=== PATIENT | female | born 1965 | race Caucasian/White ===

== ENCOUNTER 2022-03-11 18:34 | Inpatient (IN) ==
[2022-03-11] MEDS ORDERED: IOPAMIDOL 100 ML BOTTLE IV ONE (18:35)
--- NOTE | 2022-03-11 20:05 | Emergency Department Note ---
SOB HPI General Chief Complaint: Shortness of Breath/Dyspnea Stated Complaint: Heart Issue Time Seen by Provider: 03/11/22 19:19 Source: patient Mode of arrival: wheelchair Limitations: no limitations History of Present Illness HPI Narrative: Narrative: 56-year-old female with a history of diabetes, COPD, recent cessation of smoking, obstructive sleep apnea, obesity, recent echocardiogram with an ejection fraction of 34% hypokinesis of the left ventricle, history of hypertension, diverticulitis and GERD. She states she sleeps with 3 L of oxygen at night but she has been using it all day last several days. The last week she feels like its been harder to catch her breath. She says lately she is felt chest pressure. She has been using 5 to 6 L/min and has significant exertional dyspnea. She states she is had increasing swelling of her lower extremities. She has had no fever but has had chills and sweats. She denies any vomiting, abdominal pain, dysuria, urgency or frequency. Related Data Home Medications Medication Instructions Recorded Confirmed CPAP Machine See Rx Instructions .Route .COMPLEX 07/18/18 03/12/22 magnesium oxide 1 tab PO QDAY 12/25/20 03/11/22 psyllium seed (sugar) oral powder 2 tsp PO QDAY 07/29/21 03/11/22 (Metamucil (sugar) oral powder) Previous Rx's Medication Instructions Recorded cholecalciferol (vitamin D3) 25 25 mcg PO QDAY #90 caps 07/13/19 mcg (1,000 unit) capsule CPAP 85lmH2P pressure bled with #1 ea 07/25/19 2LPM O2 ondansetron 4 mg disintegrating 4 mg PO Q6H PRN nausea and 09/27/20 tablet vomiting #12 tabs triamcinolone acetonide 0.1 % 1 applic topical BID #30 grams 02/27/21 topical ointment hydrochlorothiazide 25 mg tablet 25 mg PO QDAY #90 tabs 04/28/21 buspirone 5 mg tablet 5 mg PO BID Anxiety #60 tabs 08/27/21 quetiapine 50 mg tablet (Seroquel) 50 mg PO QHS #30 tabs 08/27/21 albuterol sulfate 90 mcg/actuation 2 puff inhalation Q6H PRN 09/29/21 aerosol inhaler shortness of breath or wheezing #18 grams benazepril 10 mg tablet 10 mg PO DAILY #90 tabs 12/30/21 sitagliptin 50 mg-metformin ER 2 tab PO QPM #180 tabs 12/30/21 1,000 mg tablet,extended release 24h mp (Janumet XR) varenicline 1 mg tablet (Chantix) 1 mg PO BID #56 tabs 01/23/22 amitriptyline 25 mg tablet 25 mg PO QHS Depression #30 tabs 02/12/22 budesonide 160 mcg-glycopyr 9 2 inh inhalation QAM AND QPM #10.7 02/12/22 mcg-formot 4.8 mcg/actuation HFA grams inhaler (Breztri Aerosphere) hydrocodone 5 mg-acetaminophen 325 1 tab PO TID PRN pain #90 tabs 02/20/22 mg tablet Allergies Allergy/AdvReac Type Severity Reaction Status Date / Time azithromycin Allergy Mild Hives Verified 03/12/22 01:03 Cefaclor [From Ceclor] Allergy Unknown Hives Verified 03/12/22 01:03 clindamycin Allergy Hives Verified 03/12/22 01:03 prednisone AdvReac Agitated Verified 03/12/22 01:03 Review of Systems ROS ROS Narrative: Narrative: All systems ED: reviewed and negative except as stated. [facility] Narrative Patient History Narrative: Narrative: Medical/Surgical/Family History All Active Problems (Updated 03/11/22 @ 21:29 by Christopher Woodall PA-C) CHF exacerbation (Acute) Gastroesophageal reflux disease (Chronic) Tobacco use (Chronic) Difficulty clearing secretions (Chronic) Dyspnea on exertion (Acute) Hypersomnia (Acute) Non-compliant patient (Chronic) Abdominal pain (Chronic) Small bowel obstruction (Chronic) Ischemic bowel disease (Chronic) Pharyngitis (Chronic) Cellulitis (Chronic) Sinusitis (Chronic) Asthma (Chronic) Back pain (Chronic) Carpal tunnel syndrome (Chronic) Fracture treatment convalescence or palliative care (Chronic) Depression (Chronic) Fatigue (Chronic) Unspecified hemorrhoids (Chronic) Hyperlipidemia (Chronic) Hypertension (Chronic) Incontinence of urine (Chronic) Obesity (Chronic) Obstructive sleep apnea (Chronic) Proteinuria (Chronic) Plantar fasciitis (Chronic) Incontinence (Chronic) Abdominal hernia (Chronic) Low back pain (Chronic) Other intervertebral disc degeneration, lumbosacral region (Chronic) Shortness of breath (Chronic) Acute bronchitis, unspecified (Chronic) Type 2 diabetes mellitus without complications (Chronic) Chronic obstructive pulmonary disease, unspecified (Chronic) Candidiasis, unspecified (Chronic) Nicotine dependence, cigarettes, uncomplicated (Chronic) 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 mellitus (Chronic) Persistent proteinuria (Chronic) Proteinuria due to type 2 diabetes mellitus (Chronic) Anxiety (Chronic) Morbid obesity (Chronic) Chronic diarrhea (Chronic) Diverticular disease of colon (Chronic) Tubular adenoma of colon (Chronic) Major depressive disorder, recurrent, mild (Chronic) Unspecified abdominal hernia without obstruction or gangrene (Chronic) Cramp and spasm (Chronic) Diverticulitis of intestine, part unspecified, with perforation and abscess without bleeding (Chronic) Paresthesia of skin (Chronic) Hernia (Chronic) Spasm of esophagus (Chronic) Sinusitis (Chronic) Hypercholesterolemia (Chronic) Iron deficiency anemia (Chronic) Malaise and fatigue (Chronic) Recurrent incisional hernia with incarceration (Chronic) Gall bladder disease (Chronic) Hiatal hernia (Chronic) Incarcerated ventral hernia (Chronic) Urinary tract infection (Acute) Elbow pain, right (Acute) Sleep apnea with use of continuous positive airway pressure (CPAP) (Chronic) Dry mouth (Acute) Subacromial impingement (Acute) Left knee pain (Acute) Acute URI (Acute) Medial meniscus tear (Acute) Flank pain (Acute) Diverticulitis (Acute) Tobacco abuse (Acute) Viral syndrome (Acute) Cough (Acute) Low back pain (Acute) Nausea (Acute) Abdominal cramping (Acute) History of diverticulitis (Acute) Constipation (Acute) Diverticulitis (Acute) Depression (Acute) Laceration (Acute) Avulsion of skin (Acute) Acute URI (Acute) COPD (chronic obstructive pulmonary disease) with emphysema (Chronic) Cough (Acute) Vitamin D deficiency (Acute) Medication management (Acute) Pneumonia (Acute) Major depressive disorder, recurrent severe without psychotic features (Acute) Medical History Abdominal cramping Abdominal hernia Abdominal pain Acute bronchitis, unspecified Anxiety Asthma Back pain Candidiasis, unspecified Carpal tunnel syndrome Chronic diarrhea Chronic obstructive pulmonary disease, unspecified Constipation COPD (chronic obstructive pulmonary disease) with emphysema Cough Cramp and spasm Depression Diverticular disease of colon Diverticulitis of intestine, part unspecified, with perforation and abscess wit hout bleeding Fatigue Fracture treatment convalescence or palliative care Gall bladder disease Hernia Hiatal hernia History of diverticulitis Hypercholesterolemia Hyperlipidemia Hypertension Incarcerated ventral hernia Incontinence Incontinence of urine Iron deficiency anemia Ischemic bowel disease Low back pain Low back pain Major depressive disorder, recurrent severe without psychotic features Major depressive disorder, recurrent, mild Malaise and fatigue Medication management Morbid obesity Nausea Nicotine dependence, cigarettes, uncomplicated Obesity Obstructive sleep apnea CPAP at 15 cm of water pressure with 3.5 L of oxygen Other intervertebral disc degeneration, lumbosacral region Paresthesia of skin Pharyngitis Plantar fasciitis Proteinuria Recurrent incisional hernia with incarceration Shortness of breath Sinusitis Small bowel obstruction Spasm of esophagus Tubular adenoma of colon Type 2 diabetes mellitus without complications Unspecified abdominal hernia without obstruction or gangrene Unspecified hemorrhoids Viral syndrome Vitamin D deficiency Surgical History History of carpal tunnel surgery Both hands History of cholecystectomy History of colonoscopy 05/24/18-Dr Lopez and 09/04/13 Parent History of colostomy History of hernia surgery (~2013) incarcerated ventral hernia History of herniorrhaphy (~07/2007) ventral incisional hernia History of repair of hiatal hernia History of surgery plantar fasciitis History of total abdominal hysterectomy and bilateral salpingo-oophorectomy (~01/2007) Family History Father Diabetes mellitus, type II Hypertension, essential Heart disease Heart attack Mother Family history of coronary artery disease Mother has signs of CAD Arthritis Family/Other Cancer Grandparen,ts Maternal & Paternal Brother Hypertension, essential Social History Smoking Status: Current every day smoker Alcohol Intake Frequency: holiday/special occasion only Substance Use: does not use Exam Narrative Narrative: Narrative: Gen: No acute distress patient is on 6 L/min via nasal cannula Eyes: PERRL, no conjunctival injection , and symmetrical lids. Sclerae non i cteric HENMT: Normocephalic Atraumatic head, external nose and ears. Moist MM. Neck: Symmetric, trachea midline, no accessory muscle use CVS: +S1/S2, No murmurs or gallops. Radial pulses 2+ and equal bilat. 2+ pitting edema swelling RESP: Increased respiratory effort . Clear to auscultation bilaterally (CTAB). No noted wheezes rales or ronchi. GI: Nontender/Nondistended (NTND), No focal tenderness MSK: Extremities w/o deformity or ttp. No cyanosis or clubbing. 22+ pitting edema of the lower extremities Skin: Warm, Dry . No rashes or lesions . Cap refill less than 2. Psych: Awake, Alert, & Oriented (AAO) x3. Appropriate mood and affect . General Limitations: no limitations Course Vital Signs Vital signs: Vital Signs Temperature 36.4 C 03/11/22 18:41 Pulse Rate 112 H 03/11/22 18:41 Respiratory Rate 18 03/11/22 18:41 Blood Pressure 142/93 03/11/22 18:41 Pulse Oximetry (%) 95 03/11/22 18:41 Oxygen Delivery Method 03/11/22 18:41 Oxygen Flow Rate (L/min) 5 03/11/22 18:41 Temperature 36.4 C 03/11/22 23:06 Pulse Rate 94 H 03/12/22 00:01 Respiratory Rate 19 03/12/22 00:01 Blood Pressure 128/83 03/12/22 00:01 Pulse Oximetry (%) 97 03/12/22 00:01 Oxygen Delivery Method 03/12/22 00:01 Oxygen Flow Rate (L/min) 0 03/11/22 23:25 [facility] Narrative Medical decision making narrative: Narrative: Patient had a recent echocardiogram at the end of January as hypokinesis left ventricle with ejection fraction of 34%. She has had increasing lower extremity swelling, exertional dyspnea, shortness of breath, increasing oxygen demand. She says she has been diaphoretic and had sweats. She states she is had chest pressure. She was evaluated with an EKG, chest x-ray, CBC, Chem-8, hepatic panel, BNP and d-dimer to rule out PE. EKG: Sinus tachycardia at a rate of 106 bpm with slight QT prolongation at 506. No ST or T wave abnormality to suggest acute ischemia. Chest x-ray: Borderline cardiomegaly, prominent pulmonary interstitium likely pulmonary edema and blunting of bilateral costophrenic sulcus suggestive of small pleural effusions. Consider congestive heart failure and infection. CBC: Normal Chem-8: Unremarkable Troponin: 0.05 normal Hepatic panel: BNP: 5377 High D-Dimer: Elevated at 1.17 Patient is elevated dimer will be evaluated with CT at this time. Patient will also be given 40 mg of Lasix. CTA of the chest: Pending COVID: Given the patient has a known ejection fraction of 34%, increasing lower extremity pitting edema, chest x-ray that shows fluid overload and elevated BNP with shortness of breath this is all consistent with congestive heart failure exacerbation. Her troponins not elevated. She did have an elevated D-dimer and a CT is pending at this time but I do not suspect large pulmonary embolus or any other pathology other than congestive heart failure. I reached out to Dr. Gonzalez the hospitalist who graciously agreed to admit the patient. He will come down and evaluate her. Lab Data Result diagrams: 03/11/22 19:48 Labs: Lab Results 03/11/22 03/11/22 03/11/22 Range/Units 19:47 19:47 19:48 WBC 10.1 (4.5-11.0) K/mcL RBC 4.23 (3.59-5.38) M/mcL Hgb 12.6 (11.2-15.7) g/dL Hct 38.8 (34.1-44.9) % POC Hct (36-48) MCV 91.7 (80.0-100.0) fL MCH 29.8 (26.0-34.0) pg MCHC 32.5 (31.0-36.0) g/dL RDW 14.3 (11.5-14.5) % Plt Count 379 (140-440) K/mcL MPV 9.5 (8.8-12.5) fL Immature Gran % (Auto) 0.3 (0.0-0.5) % Neut % (Auto) 69.9 (38.0-78.0) % Lymph % (Auto) 24.0 (15.5-49.0) % [place] % (Auto) 4.6 (1.0-12.0) % Eos % (Auto) 0.9 (0.0-7.0) % Baso % (Auto) 0.3 (0.0-2.0) % Lymph # (Auto) 2.43 (1.50-4.80) K/mcL [place] # (Auto) 0.47 (0.10-0.90) K/mcL Eos # (Auto) 0.09 (0.00-0.70) K/mcL Baso # (Auto) 0.03 (0.00-0.30) K/mcL Immature Gran # 0.03 (0.00-0.05) K/mcl Absolute Neutrophils 7.06 (1.80-8.00) K/mcL D-Dimer (0.27-0.50) ug/mL POC Sodium (133-145) POC Potassium (3.3-5.1) POC Chloride (96-108) POC Total CO2 (22-30) POC BUN (6-20) POC Creatinine (0.6-1.2) POC Glucose (70-105) Hemoglobin A1c 7.0 H (4.0-6.0) % Hgb Estim Average Glucose 154 mg/dL POC WB Ioniz Calcium (1.16-1.32) Total Bilirubin 0.4 (0.1-1.0) mg/dL Direct Bilirubin < 0.2 (0-0.3) mg/dL AST 31 (<32) U/L ALT 35 (<40) U/L Alkaline Phosphatase 79 (39-117) U/L NT-Pro-B Natriuret Pep 5377.0 H (<125.0) pg/mL Total Protein 6.7 (5.9-8.4) gm/dL Albumin 3.2 (3.2-5.2) gm/dL Globulin 3.5 (2.2-3.7) gm/dL POC Troponin I (0.00-0.08) 03/11/22 03/11/22 03/11/22 Range/Units 19:48 19:53 19:54 WBC (4.5-11.0) K/mcL RBC (3.59-5.38) M/mcL Hgb (11.2-15.7) g/dL Hct (34.1-44.9) % POC Hct 38.0 (36-48) MCV (80.0-100.0) fL MCH (26.0-34.0) pg MCHC (31.0-36.0) g/dL RDW (11.5-14.5) % Plt Count (140-440) K/mcL MPV (8.8-12.5) fL Immature Gran % (Auto) (0.0-0.5) % Neut % (Auto) (38.0-78.0) % Lymph % (Auto) (15.5-49.0) % [place] % (Auto) (1.0-12.0) % Eos % (Auto) (0.0-7.0) % Baso % (Auto) (0.0-2.0) % Lymph # (Auto) (1.50-4.80) K/mcL [place] # (Auto) (0.10-0.90) K/mcL Eos # (Auto) (0.00-0.70) K/mcL Baso # (Auto) (0.00-0.30) K/mcL Immature Gran # (0.00-0.05) K/mcl Absolute Neutrophils (1.80-8.00) K/mcL D-Dimer 1.17 H (0.27-0.50) ug/mL POC Sodium 141 (133-145) POC Potassium 3.6 (3.3-5.1) POC Chloride 105 (96-108) POC Total CO2 26.0 (22-30) POC BUN 10 (6-20) POC Creatinine 1.0 (0.6-1.2) POC Glucose 118 H (70-105) Hemoglobin A1c (4.0-6.0) % Hgb Estim Average Glucose mg/dL POC WB Ioniz Calcium 1.15 L (1.16-1.32) Total Bilirubin (0.1-1.0) mg/dL Direct Bilirubin (0-0.3) mg/dL AST (<32) U/L ALT (<40) U/L Alkaline Phosphatase (39-117) U/L NT-Pro-B Natriuret Pep (<125.0) pg/mL Total Protein (5.9-8.4) gm/dL Albumin (3.2-5.2) gm/dL Globulin (2.2-3.7) gm/dL POC Troponin I 0.05 (0.00-0.08) ED POC Tests ED POC Tests: LUIS - SARS Antigen Negative Discharge Plan Patient/Caregiver Discharge Instructions Pt seen by INDUSTRIAL RENDERER/PA only: Yes Clinical Impression: CHF exacerbation Patient Disposition: Xfer As Inpt ([facility]) Discharge Date/Time: 03/11/22 23:01
[2022-03-11 20:31] LABS: POC Calcium, Ionized 1.15 (1.16-1.32); POC Potassium 3.6 (3.3-5.1)
[2022-03-11 20:40] LABS: Basophils # (Auto) 0.03 K/mcL (0.00-0.30); Basophils % (Auto) 0.3 % (0.0-2.0); Eosinophils # (Auto) 0.09 K/mcL (0.00-0.70); Eosinophils % (Auto) 0.9 % (0.0-7.0); Hematocrit 38.8 % (34.1-44.9); Hemoglobin 12.6 g/dL (11.2-15.7); Lymphocytes # (Auto) 2.43 K/mcL (1.50-4.80); Mean Cell Volume 91.7 fL (80.0-100.0); Mean Corpuscular HGB Conc 32.5 g/dL (31.0-36.0); Mean Platelet Volume 9.5 fL (8.8-12.5); Monocytes # (Auto) 0.47 K/mcL (0.10-0.90); Monocytes % (Auto) 4.6 % (1.0-12.0); Neutrophils % (Auto) 69.9 % (38.0-78.0); Platelet Count 379 K/mcL (140-440); RBC 4.23 M/mcL (3.59-5.38); Red Cell Distribution Width 14.3 % (11.5-14.5); WBC 10.1 K/mcL (4.5-11.0)
[2022-03-11] MEDS ORDERED: FUROSEMIDE 40 MG/4 ML VIAL IV ONE (21:02)
[2022-03-11 21:04] LABS: ALT/SGPT 35 U/L (<40); AST/SGOT 31 U/L (<32); Albumin 3.2 gm/dL (3.2-5.2); Alkaline Phosphatase 79 U/L (39-117); Bilirubin,Direct < 0.2 mg/dL (0-0.3); Bilirubin,Total 0.4 mg/dL (0.1-1.0); Globulin 3.5 gm/dL (2.2-3.7)
--- NOTE | 2022-03-11 22:11 | Internal Med History&Physical ---
HPI History of Present Illness Patient information: Note initiated : 03/11/22 at 10:09 pm Service Date, if different from initiated Date: [] Patient: Rosmery Garcia a 56 y/o F admitted on for Heart Issue. Chief Complaint: [shortness of breath] Chief complaint: shortness of breath History of present illness: Ms. Garcia is a 56 year old F history of recently diagnosed CHF, COPD, obstructive sleep apnea on CPAP, morbid obesity, type 2 diabetes mellitus, essential hypertensions, major depressive disorder, presenting with 2 weeks history of exertional dyspnea, shortness of breath, as well as 3-day history of chest pressure. 2-1/2 weeks ago, she presented to the urgent care center and was being diagnosed for bronchitis and was sent home with 10-day oral antibiotics. She initially improved in terms of her breathing but then she started to deteriorate again and has increasing shortness of breath. She also have exertional dyspnea over the past 2 weeks after ambulating for 20 feet. She denies any cough sputum productions or respiratory wheezings. She is complaining of diaphoresis. She denies fever or chills. She sleeps on a recliner. She also have noticed increased bilateral leg swellings. She denies any unintentional weight gain. Over the past 3 days, she is complaining of increasing chest pressure. She had a echocardiogram performed a week ago showing reduced systolic function with LVEF 34%. Vital signs at ED presentations only significant for mild tachycardia heart rate up to the 1 teens, and blood pressure slightly elevated with systolic blood pressure in the 160s mmHg. Rest of the vital signs within normal limits. Labs significant for lack of leukocytosis with WBC 10.1. D-dimer slightly elevated to 1.17. BNP 5377. Troponin 0.05. Andreea negative. CTA of the chest pending. Chest x-ray showing bilateral pulmonary edema suggestive of the presence of CHF. Constitutional Constitutional: Present night sweats; Absent chills, excessive sweating, fatigue, fever(s) or weakness EENT Eyes: Absent blurry vision, change in vision, loss of vision or other visual disturbances Ears: Absent decreased hearing or tinnitus Nose, mouth and throat: Absent abnormal hearing, dry mouth, headache(s), nasal congestion or sore throat Cardiovascular Cardiovascular: Present chest pain at rest, dyspnea, dyspnea on exertion and edema; Absent chest pain, irregular heart rhythm or palpatations Respiratory Respiratory: Present dyspnea and dyspnea on exertion; Absent cough or wheezing Gastrointestinal Gastrointestinal: Absent abdominal pain, constipation, diarrhea, nausea or vomiting Musculoskeletal Musculoskeletal: Absent back pain, deformity, limited range of motion, muscle cramps, muscle weakness or numbness Integumentary Integumentary: Absent lesions, rash or wounds Neurological Neurological: Absent focal weakness, headache(s) or numbness Psychiatric Psychiatric: Absent anxiety, depression or hallucinations PFSH PFSH All Active Problems (Updated 03/11/22 @ 21:29 by Christopher Woodall PA-C) CHF exacerbation (Acute) Gastroesophageal reflux disease (Chronic) Tobacco use (Chronic) Difficulty clearing secretions (Chronic) Dyspnea on exertion (Acute) Hypersomnia (Acute) Non-compliant patient (Chronic) Abdominal pain (Chronic) Small bowel obstruction (Chronic) Ischemic bowel disease (Chronic) Pharyngitis (Chronic) Cellulitis (Chronic) Sinusitis (Chronic) Asthma (Chronic) Back pain (Chronic) Carpal tunnel syndrome (Chronic) Fracture treatment convalescence or palliative care (Chronic) Depression (Chronic) Fatigue (Chronic) Unspecified hemorrhoids (Chronic) Hyperlipidemia (Chronic) Hypertension (Chronic) Incontinence of urine (Chronic) Obesity (Chronic) Obstructive sleep apnea (Chronic) Proteinuria (Chronic) Plantar fasciitis (Chronic) Incontinence (Chronic) Abdominal hernia (Chronic) Low back pain (Chronic) Other intervertebral disc degeneration, lumbosacral region (Chronic) Shortness of breath (Chronic) Acute bronchitis, unspecified (Chronic) Type 2 diabetes mellitus without complications (Chronic) Chronic obstructive pulmonary disease, unspecified (Chronic) Candidiasis, unspecified (Chronic) Nicotine dependence, cigarettes, uncomplicated (Chronic) 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 mellitus (Chronic) Persistent proteinuria (Chronic) Proteinuria due to type 2 diabetes mellitus (Chronic) Anxiety (Chronic) Morbid obesity (Chronic) Chronic diarrhea (Chronic) Diverticular disease of colon (Chronic) Tubular adenoma of colon (Chronic) Major depressive disorder, recurrent, mild (Chronic) Unspecified abdominal hernia without obstruction or gangrene (Chronic) Cramp and spasm (Chronic) Diverticulitis of intestine, part unspecified, with perforation and abscess without bleeding (Chronic) Paresthesia of skin (Chronic) Hernia (Chronic) Spasm of esophagus (Chronic) Sinusitis (Chronic) Hypercholesterolemia (Chronic) Iron deficiency anemia (Chronic) Malaise and fatigue (Chronic) Recurrent incisional hernia with incarceration (Chronic) Gall bladder disease (Chronic) Hiatal hernia (Chronic) Incarcerated ventral hernia (Chronic) Urinary tract infection (Acute) Elbow pain, right (Acute) Sleep apnea with use of continuous positive airway pressure (CPAP) (Chronic) Dry mouth (Acute) Subacromial impingement (Acute) Left knee pain (Acute) Acute URI (Acute) Medial meniscus tear (Acute) Flank pain (Acute) Diverticulitis (Acute) Tobacco abuse (Acute) Viral syndrome (Acute) Cough (Acute) Low back pain (Acute) Nausea (Acute) Abdominal cramping (Acute) History of diverticulitis (Acute) Constipation (Acute) Diverticulitis (Acute) Depression (Acute) Laceration (Acute) Avulsion of skin (Acute) Acute URI (Acute) COPD (chronic obstructive pulmonary disease) with emphysema (Chronic) Cough (Acute) Vitamin D deficiency (Acute) Medication management (Acute) Pneumonia (Acute) Major depressive disorder, recurrent severe without psychotic features (Acute) Medical History Abdominal cramping Abdominal hernia Abdominal pain Acute bronchitis, unspecified Anxiety Asthma Back pain Candidiasis, unspecified Carpal tunnel syndrome Chronic diarrhea Chronic obstructive pulmonary disease, unspecified Constipation COPD (chronic obstructive pulmonary disease) with emphysema Cough Cramp and spasm Depression Diverticular disease of colon Diverticulitis of intestine, part unspecified, with perforation and abscess without bleeding Fatigue Fracture treatment convalescence or palliative care Gall bladder disease Hernia Hiatal hernia History of diverticulitis Hypercholesterolemia Hyperlipidemia Hypertension Incarcerated ventral hernia Incontinence Incontinence of urine Iron deficiency anemia Ischemic bowel disease Low back pain Low back pain Major depressive disorder, recurrent severe without psychotic features Major depressive disorder, recurrent, mild Malaise and fatigue Medication management Morbid obesity Nausea Nicotine dependence, cigarettes, uncomplicated Obesity Obstructive sleep apnea CPAP at 15 cm of water pressure with 3.5 L of oxygen Other intervertebral disc degeneration, lumbosacral region Paresthesia of skin Pharyngitis Plantar fasciitis Proteinuria Recurrent incisional hernia with incarceration Shortness of breath Sinusitis Small bowel obstruction Spasm of esophagus Tubular adenoma of colon Type 2 diabetes mellitus without complications Unspecified abdominal hernia without obstruction or gangrene Unspecified hemorrhoids Viral syndrome Vitamin D deficiency Surgical History History of carpal tunnel surgery Both hands History of cholecystectomy History of colonoscopy 05/24/18-Dr Lopez and 09/04/13 Parent History of colostomy History of hernia surgery (~2013) incarcerated ventral hernia History of herniorrhaphy (~07/2007) ventral incisional hernia History of repair of hiatal hernia History of surgery plantar fasciitis History of total abdominal hysterectomy and bilateral salpingo-oophorectomy (~01/2007) Family History Father Diabetes mellitus, type II Hypertension, essential Heart disease Heart attack Mother Family history of coronary artery disease Mother has signs of CAD Arthritis Family/Other Cancer Grandparen,ts Maternal & Paternal Brother Hypertension, essential Social History foster care: No household members: spouse and family housing: house lives independently: Yes marital status: education level: high school occupational status: unemployed occupation: [employer]was fired from [employer] well-balanced diet: rarely or never high-fat food intake: 3 or more times/day daily servings fruits/ve-1 daily servings of milk/calcium: 0-1 physical activity: none smoking status: Current every day smoker tobacco type: cigarettes per day: 20 pack-years: 50 alcohol intake frequency: holiday/special occasion only substance use type: does not use MEDS/ALLERGIES Home Medications and Allergies Home Medications Medication Instructions Recorded Confirmed Type CPAP Machine .Route 07/18/18 03/11/22 History cholecalciferol (vitamin D3) 25 25 mcg PO QDAY #90 caps 07/13/19 03/11/22 Rx mcg (1,000 unit) capsule CPAP [id number] pressure bled with #1 ea 07/25/19 03/11/22 Rx 2LPM O2 ondansetron 4 mg disintegrating 4 mg PO Q6H PRN nausea and 09/27/20 03/11/22 Rx tablet vomiting #12 tabs magnesium oxide 1 tab PO QDAY 12/25/20 03/11/22 History triamcinolone acetonide 0.1 % 1 applic topical BID #30 grams 02/27/21 03/11/22 Rx topical ointment hydrochlorothiazide 25 mg tablet 25 mg PO QDAY #90 tabs 04/28/21 03/11/22 Rx psyllium seed (sugar) oral powder 2 tsp PO QDAY 07/29/21 03/11/22 History (Metamucil (sugar) oral powder) buspirone 5 mg tablet 5 mg PO BID Anxiety #60 tabs 08/27/21 03/11/22 Rx quetiapine 50 mg tablet (Seroquel) 50 mg PO QHS #30 tabs 08/27/21 03/11/22 Rx albuterol sulfate 90 mcg/actuation 2 puff inhalation Q6H PRN 09/29/21 03/11/22 Rx aerosol inhaler shortness of breath or wheezing #18 grams benazepril 10 mg tablet 10 mg PO DAILY #90 tabs 12/30/21 03/11/22 Rx sitagliptin 50 mg-metformin ER 2 tab PO QPM #180 tabs 12/30/21 03/11/22 Rx 1,000 mg tablet,extended release 24h mp (Janumet XR) varenicline 1 mg tablet (Chantix) 1 mg PO BID #56 tabs 01/23/22 03/11/22 Rx amitriptyline 25 mg tablet 25 mg PO QHS Depression #30 tabs 02/12/22 03/11/22 Rx budesonide 160 mcg-glycopyr 9 2 inh inhalation QAM AND QPM #10.7 02/12/22 03/11/22 Rx mcg-formot 4.8 mcg/actuation HFA grams inhaler (Breztri Aerosphere) hydrocodone 5 mg-acetaminophen 325 1 tab PO TID PRN pain #90 tabs 02/20/22 03/11/22 Rx mg tablet Allergies Allergy/AdvReac Type Severity Reaction Status Date / Time azithromycin Allergy Mild Hives Verified 03/11/22 18:47 Cefaclor [From [facility]] Allergy Unknown Unknown Verified 03/11/22 18:47 clindamycin Allergy unknown Verified 03/11/22 18:47 prednisone AdvReac unknown Verified 03/11/22 18:47 EXAM Constitutional Vitals: Temp Pulse Resp BP Pulse Ox O2 Del Method O2 Flow Rate 36.4 C 112 H 20 153/109 100 5 03/11/22 18:41 03/11/22 18:41 03/11/22 21:46 03/11/22 21:46 03/11/22 21:46 03/11/22 18:41 03/11/22 18:41 General appearance: cooperative, mild distress and morbidly obese Head Head exam: Present atraumatic and normocephalic Eye Eye exam: Present EOMI and PERRL ENT ENT exam: Present mucous membranes moist, normal exam and normal external ear exam Additional comments: Nasal cannula in place Neck Neck exam: Present normal inspection; Absent lymphadenopathy, tenderness or thyromegaly Respiratory Respiratory exam: Present rhonchi; Absent accessory muscle use, respiratory distress or wheezes Cardiovascular Cardiovascular exam: Present normal rate and rhythm; Absent JVD GI/Abdominal GI/Abdominal exam: Present normal bowel sounds and soft; Absent organomegaly or tenderness Extremities Exam Extremities exam: Present full ROM, normal capillary refill, normal inspection and pedal edema; Absent tenderness Neurological Exam Neurological exam: Present alert, CN II-XII intact and oriented X3; Absent motor sensory deficit Psychiatric Psychiatric exam: Present normal affect and normal mood; Absent anxious or depressed Skin Skin exam: Present dry and intact DATA Data Completed and Pending Labs: Labs from last 24 hours 03/11/22 03/11/22 03/11/22 19:54 19:53 19:48 WBC RBC Hgb Hct POC Hct 38.0 MCV MCH MCHC RDW Plt Count MPV Immature Gran % (Auto) Neut % (Auto) Lymph % (Auto) [place] % (Auto) Eos % (Auto) Baso % (Auto) Lymph # (Auto) [place] # (Auto) Eos # (Auto) Baso # (Auto) Immature Gran # Absolute Neutrophils D-Dimer 1.17 H POC Sodium 141 POC Potassium 3.6 POC Chloride 105 POC Total CO2 26.0 POC BUN 10 POC Creatinine 1.0 POC Glucose 118 H POC WB Ioniz Calcium 1.15 L Total Bilirubin Direct Bilirubin AST ALT Alkaline Phosphatase NT-Pro-B Natriuret Pep Total Protein Albumin Globulin POC Troponin I 0.05 03/11/22 03/11/22 19:48 19:47 WBC 10.1 RBC 4.23 Hgb 12.6 Hct 38.8 POC Hct MCV 91.7 MCH 29.8 MCHC 32.5 RDW 14.3 Plt Count 379 MPV 9.5 Immature Gran % (Auto) 0.3 Neut % (Auto) 69.9 Lymph % (Auto) 24.0 [place] % (Auto) 4.6 Eos % (Auto) 0.9 Baso % (Auto) 0.3 Lymph # (Auto) 2.43 [place] # (Auto) 0.47 Eos # (Auto) 0.09 Baso # (Auto) 0.03 Immature Gran # 0.03 Absolute Neutrophils 7.06 D-Dimer POC Sodium POC Potassium POC Chloride POC Total CO2 POC BUN POC Creatinine POC Glucose POC WB Ioniz Calcium Total Bilirubin 0.4 Direct Bilirubin < 0.2 AST 31 ALT 35 Alkaline Phosphatase 79 NT-Pro-B Natriuret Pep 5377.0 H Total Protein 6.7 Albumin 3.2 Globulin 3.5 POC Troponin I A/P Assessment and plan (1) CHF exacerbation: Status: Acute (2) Obstructive sleep apnea: Status: Chronic Comment: CPAP at 15 cm of water pressure with 3.5 L of oxygen (3) Type 2 diabetes mellitus without complications: Status: Chronic Qualifiers: Diabetes mellitus long term care administrator insulin use: without long term care administrator use Qualified Code(s): E11.9 - Type 2 diabetes mellitus without complications (4) Chronic obstructive pulmonary disease, unspecified: Status: Chronic Qualifiers: COPD type: chronic bronchitis Chronic bronchitis type: simple Qualified Code(s): J41.0 - Simple chronic bronchitis (5) Morbid obesity: Status: Chronic (6) Major depressive disorder, recurrent severe without psychotic features: Status: Acute (7) Hypertension: Status: Chronic Qualifiers: Hypertension type: essential hypertension Qualified Code(s): I10 - Essential (primary) hypertension Narrative A/P Narrative: Assessment and Plans: 1. CHF with exacerbation: Recent echocardiogram showing systolic dysfunction with LVEF 34% Inpatient PCU with telemetry Supplemental oxygen Strict intake and output Daily weigh 2L/day fluid restriction Lasix 40mg IV BID Lisinopril Aldactone Beta arleen contraindicated during exacerbation Physical therapy 2. h/o COPD: Supplemental oxygen Continue bronchodilators from home regimen 3. FILIPE on CPAP: Continue CPAP while sleeping at night 4. Morbid obesity: [employer] patient on lifestyle modifications including regular exercise and healthy diet in order to lose weight 5. T2DM: HgA1c Hold oral hypoglycemics Accu Chek AC HS Insulin Lispro SSI AC HS Hypoglycemia protocol Diabetic diet 6. Essential HTN: Lasix 40mg IV BID Lisinopril Aldactone Beta arleen contraindicated during exacerbation Hydralazine 10mg IV q4-6hr, PRN SBP>=180 and/or DBP>=110mmHg GI ppx: not currently indicated DVT ppx: Lovenox Code status: Full Prognosis: guarded Disposition: inpatient PCU; PT Time Spent With Patient Time: Total time spent is greater than 50% in coordination of care (as documented) at patient's floor/unit and/or counseling patient: Total time spent with greater than 50% in coordination of care (as documented) at patient's floor/unit and/or counseling patient:: 50 - 70 minutes
[2022-03-11] MEDS ORDERED: DEXTROSE 31 GM ORAL.SUSP PO PRN (23:14)
[2022-03-11] MEDS ORDERED: hydrALAZINE 20 MG/ML VIAL IV PRN (23:14)
[2022-03-11] MEDS ORDERED: DEXTROSE 50% 50 ML VIAL IV PRN (23:14)
[2022-03-11] MEDS ORDERED: SENNOSIDES 1 TABLET PO PRN (23:14)
[2022-03-11] MEDS ORDERED: IPRATROPIUM/ALBUTEROL 3 ML AMPUL.NEB NEB PRN (23:14)
[2022-03-11] MEDS ORDERED: HYDROcodone/APAP 5/325MG TABLET PO PRN (23:14)
[2022-03-11] MEDS ORDERED: guaiFENesin/DEXTROMETHORPHAN ORAL SOL PO PRN (23:14)
[2022-03-11] MEDS ORDERED: LACTULOSE 20 GM/30 ML ORAL.SOL PO PRN (23:14)
[2022-03-11] MEDS ORDERED: ACETAMINOPHEN 325 MG TABLET PO PRN (23:14)
[2022-03-11] MEDS ORDERED: NITROGLYCERIN 0.4 MG TAB.SUBL SL PRN (23:14)
[2022-03-11] MEDS ORDERED: morphine 2 MG/ML VIAL IV PRN (23:14)
[2022-03-11] MEDS ORDERED: ONDANSETRON 4 MG/2 ML VIAL IV PRN (23:14)
--- NOTE | 2022-03-12 03:25 | XRay Report ---
CLINICAL INFORMATION: Dyspnea COMPARISON: 07/01/2021 TECHNIQUE: Portable FINDINGS: Moderate cardiomegaly is new from prior exam. Mediastinum unremarkable. Pulmonary vessels are moderately distended and there is mild interstitial edema throughout both lungs. Moderate patchy right basilar infiltrate as developed. Minor airspace disease left base is likely atelectasis. Small bilateral pleural effusions noted. IMPRESSION: Mild CHF Moderate patchy right basilar infiltrate. Minor left basilar atelectasis Interpreted and Authenticated by: Yeison Berger 03/12/22
--- NOTE | 2022-03-12 04:29 | Cat Scan Report ---
CLINICAL INFORMATION: Tachycardia, shortness of breath and elevated d-dimer COMPARISON: Chest CT without contrast 02/06/2022 TECHNIQUE: 80ml of Isovue-370 were injected intravenously. Using SmartPrep to maximize pulmonary artery opacification, .625mm helical slices were obtained from the lung apices through the lung bases. Following reconstruction, 2.5 mm sagittal, coronal, and axial reformations were processed. The exam was reviewed at mediastinal, lung, and bone windows. The exam was performed using radiation dose optimization techniques including, but not limited to, automated exposure control, adjustment of the mA and/or kV according to patient size and use of iterative reconstruction technique. FINDINGS: Pulmonary parenchymal windows show moderate centrilobular emphysema featuring chronic bronchitis with elevated lung volumes wall thickening/dilatation of bronchi. There are also scattered bullae throughout both upper lobes as previously seen. Small region of groundglass airspace disease in the posterior inferior right lower lobe. This could indicate developing pneumonia or atelectasis. Moderate bilateral pleural effusions results in subsegmental compressive atelectasis in the adjacent posterior lower lobes. The pulmonary vessels are mildly distended and there is minimal peribronchial vascular edema.. Pleural spaces are unremarkable-no effusions. Mediastinal windows show the heart is is moderately enlarged. Minimal calcific plaque present in the coronary arteries. There is also calcification in the aortic valve-as previously seen.. The pulmonary arteries are [id number] evidence of embolus. The thoracic aorta is also normal diameter. Mildly enlarged lymph nodes in the mid and lower mediastinum range up to 2.4 cm the precarinal region are unchanged from previous exam should represent benign adenopathy. Esophagus is grossly normal. Scattered thyroid nodules appear to be stable Bones and soft tissues the chest wall are normal. Images through the superior abdomen to 2.3 cm benign adenoma left adrenal gland also stable. IMPRESSION: 1. Moderate CHF 2. No evidence of pulmonary embolus. 3. Moderate centrilobular emphysema-stable 4. Moderate bilateral pleural effusions. 5. Mild groundglass airspace disease in the posterior right lower lobe is more likely atelectasis than developing pneumonia. Suggest follow-up with chest x-ray. 6. 2.3 cm benign adenoma left adrenal gland unchanged. Interpreted and Authenticated by: Yeison Berger 03/12/22
[2022-03-12] MEDS: 0.9 % SODIUM CHLORIDE 10 ML SYRINGE IV SCH ×3 (05:44→20:51)
[2022-03-12 07:04] LABS: Basophils # (Auto) 0.02 K/mcL (0.00-0.30); Basophils % (Auto) 0.2 % (0.0-2.0); Eosinophils # (Auto) 0.11 K/mcL (0.00-0.70); Eosinophils % (Auto) 1.2 % (0.0-7.0); Hematocrit 38.3 % (34.1-44.9); Hemoglobin 12.2 g/dL (11.2-15.7); Lymphocytes # (Auto) 2.53 K/mcL (1.50-4.80); Lymphocytes % (Auto) 27.7 % (15.5-49.0); Mean Cell Volume 93.2 fL (80.0-100.0); Mean Corpuscular HGB Conc 31.9 g/dL (31.0-36.0); Mean Platelet Volume 9.5 fL (8.8-12.5); Monocytes # (Auto) 0.53 K/mcL (0.10-0.90); Monocytes % (Auto) 5.8 % (1.0-12.0); Neutrophils % (Auto) 64.7 % (38.0-78.0); Platelet Count 362 K/mcL (140-440); RBC 4.11 M/mcL (3.59-5.38); Red Cell Distribution Width 14.4 % (11.5-14.5); WBC 9.1 K/mcL (4.5-11.0)
[2022-03-12 07:30] LABS: ALT/SGPT 34 U/L (<40); AST/SGOT 31 U/L (<32); Albumin 2.9 gm/dL (3.2-5.2); Albumin/Globulin Ratio 0.9 (1.0-2.3); Alkaline Phosphatase 69 U/L (39-117); Bilirubin,Total 0.4 mg/dL (0.1-1.0); Blood Urea Nitrogen 9 mg/dL (6-20); Calcium 8.6 mg/dL (8.6-10.4); Carbon Dioxide 27 mmol/L (22-30); Chloride 103 mmol/L (96-108); Globulin 3.3 gm/dL (2.2-3.7); Glomerular Filtration Rate 62; Glucose 120 mg/dL (70-105); Phosphorous 4.3 mg/dL (2.5-4.5)
[2022-03-12] MEDS: INSULIN LISPRO 1 UNIT/0.01 ML UNIT SQ SCH ×4 (07:56→20:50)
--- NOTE | 2022-03-12 08:12 | EKG ---
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
--- NOTE | 2022-03-12 08:12 | EKG ---
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
[2022-03-12] MEDS ORDERED: HYDROcodone/APAP (PP) 5/325MG TABLET (#4) PO PRN (08:42)
[2022-03-12] MEDS ORDERED: ALBUTEROL SULFATE 200 PUFF INHALER INH PRN (08:42)
[2022-03-12] MEDS: FUROSEMIDE 40 MG/4 ML VIAL IV SCH ×2 (08:54→16:59)
[2022-03-12] MEDS ORDERED: LISINOPRIL 2.5 MG TABLET PO SCH (09:00)
[2022-03-12] MEDS: SPIRONOLACTONE 25 MG TABLET PO SCH (09:04)
[2022-03-12] MEDS: ENOXAPARIN 40 MG/0.4 ML SYRINGE SQ SCH (09:05)
[2022-03-12] MEDS: DOCUSATE SODIUM 100 MG CAPSULE PO SCH ×3 (09:05→20:37)
[2022-03-12] MEDS: VITAMIN D3 25 MCG TABLET PO SCH ×2 (09:05→09:20)
[2022-03-12] MEDS: busPIRone 5 MG TABLET PO SCH ×2 (09:05→20:49)
[2022-03-12] MEDS: MAGNESIUM OXIDE 400 MG TABLET PO SCH ×3 (09:05→20:49)
[2022-03-12] MEDS: PSYLLIUM HUSK 6 GM PACKET PO SCH ×2 (09:06→09:20)
[2022-03-12] MEDS: Triamcinolone Acetonide 0.1 % ointment TOPICAL SCH ×2 (09:25→20:50)
[2022-03-12] MEDS: LISINOPRIL 10 MG TABLET PO SCH (09:26)
--- NOTE | 2022-03-12 11:41 | Internal Med Progress Note ---
SUBJECTIVE Subjective Patient information: Note initiated : 03/12/22 at 11:35 am Service Date, if different from initiated Date: [] Patient: Rosmery Garcia a 56 y/o F admitted on 03/11/22 for Heart Issue. Chief Complaint: [] Interval history: Ms. Garcia is a 56 year old F history of recently diagnosed CHF, COPD, obstructive sleep apnea on CPAP, morbid obesity, type 2 diabetes mellitus, essential hypertensions, major depressive disorder, presenting with 2 weeks history of exertional dyspnea, shortness of breath, as well as 3-day history of chest pressure. 2-1/2 weeks ago, she presented to the urgent care center and was being diagnosed for bronchitis and was sent home with 10-day oral antibiotics. She initially improved in terms of her breathing but then she started to deteriorate again and has increasing shortness of breath. She also have exertional dyspnea over the past 2 weeks after ambulating for 20 feet. She denies any cough sputum productions or respiratory wheezings. She is complaining of diaphoresis. She denies fever or chills. She sleeps on a recliner. She also have noticed increased bilateral leg swellings. She denies any unintentional weight gain. Over the past 3 days, she is complaining of increasing chest pressure. She had a echocardiogram performed a week ago showing reduced systolic function with LVEF 34%. Vital signs at ED presentations only significant for mild tachycardia heart rate up to the 1 teens, and blood pressure slightly elevated with systolic blood pressure in the 160s mmHg. Rest of the vital signs within normal limits. Labs significant for lack of leukocytosis with WBC 10.1. D-dimer slightly elevated to 1.17. BNP 5377. Troponin 0.05. Andreea negative. CTA of the chest pending. Chest x-ray showing bilateral pulmonary edema suggestive of the presence of CHF. 03/12: Patient was on CPAP while sleeping last night and this morning she is tolerating room air. She is complaining of improving degree of shortness of breath. She denies any cough or wheezing at the moment. She denies any chest pain or chest tightness in the moment. She denies any fever chills or diaphoresis at the moment. Improving degree of energy level. Continue IV Lasix for aggressive diuresis. Continue fluid restrictions. Continue strict intake and output measurement and daily weight. Continue physical therapy and Occupational Therapy for placement planning. Constitutional Vitals: Vital Signs Temp Pulse Resp BP Pulse Ox O2 Del Method O2 Flow Rate 36.1 C 97 H 19 143/104 98 0 03/12/22 08:00 03/12/22 10:28 03/12/22 10:28 03/12/22 10:27 03/12/22 10:28 03/12/22 10:27 03/11/22 23:25 Period Temp Pulse Resp BP Sys/Soler Pulse Ox O2 Del Method O2 Flow Rate Last 24 Hr 36.1 C-36.4 C 86-113 14-27 108-160/74-139 90-100 CPAP-Room Air, Nasal Cannula, CPAP 0-5 Intake and Output 03/11/22 03/12/22 03/12/22 21:59 05:59 13:59 Intake Total 240 Output Total 5 475 Balance -1835 -475 Weight 123.377 kg 121.608 kg Intake & Output: Intake & Output 03/11/22 03/12/22 03/12/22 21:59 05:59 13:59 Intake Total 240 Output Total 6 475 Balance -1835 -430 Weight 123.377 kg 121.608 kg Intake: Oral 240 Output: Void Amount 2074 Urine/Stool Mix 475 Other: Meal Nourishment/Supplement Percent of Meal Consumed 100% Feeding Ability Independent Urine Appearance Clear Urine Color Pale Stool Size Small Stool Color Brown Stool Consistency Soft Loose General appearance: cooperative, morbidly obese and no acute distress Head Head exam: Present atraumatic and normal inspection Eye Eye exam: Present normal appearance ENT ENT exam: Present mucous membranes moist, normal exam and normal external ear exam Neck Neck exam: Present normal inspection Respiratory Respiratory exam: Present rhonchi Cardiovascular Cardiovascular exam: Present normal rate and rhythm GI/Abdominal GI/Abdominal exam: Present normal bowel sounds Back Exam Back exam: Present normal inspection Neurological Exam Neurological exam: Present alert and oriented X3 Skin Skin exam: Present intact and warm OBJ DATA Labs CBC & Chem 7: 03/12/22 05:14 03/12/22 05:14 Labs: Abnormal Lab Results 03/12/22 03/12/22 03/12/22 08:08 05:14 05:14 D-Dimer Potassium 3.2 L Glucose 120 H POC Glucose Hemoglobin A1c POC WB Ioniz Calcium Troponin T 0.04 H* 0.04 H* NT-Pro-B Natriuret Pep Albumin 2.9 L Albumin/Globulin Ratio 0.9 L 03/11/22 03/11/22 03/11/22 19:53 19:48 19:47 D-Dimer 1.17 H Potassium Glucose POC Glucose 118 H Hemoglobin A1c 7.0 H POC WB Ioniz Calcium 1.15 L Troponin T NT-Pro-B Natriuret Pep Albumin Albumin/Globulin Ratio 03/11/22 19:47 D-Dimer Potassium Glucose POC Glucose Hemoglobin A1c POC WB Ioniz Calcium Troponin T NT-Pro-B Natriuret Pep 5377.0 H Albumin Albumin/Globulin Ratio Meds: Medications Acetaminophen (Acetaminophen 325 Mg Tablet) 650 mg PO Q6HP PRN; Protocol PRN Reason: Per Pain Protocol/Fever > 101 Hydrocodone Bitart/Acetaminophen (Hydrocodone/Apap 5/325mg Tablet) 1 tab PO Q4HP PRN; Protocol PRN Reason: Per Pain Protocol Albuterol Sulfate (Albuterol Sulfate 200 Puff Inhaler) 2 puff INH Q6H PRN PRN Reason: shortness of breath or wheezing Albuterol/Ipratropium (Ipratropium/Albuterol 3 Ml Ampul.Neb) 3 ml NEB Q4HRT PRN PRN Reason: Wheezing Amitriptyline HCl (Amitriptyline 25 Mg Tablet) 25 mg PO QHS [facility] Buspirone HCl (Buspirone 5 Mg Tablet) 5 mg PO BID [facility] Last Admin: 03/12/22 09:05 Dose: 5 mg Dextrose (Dextrose 50% 50 Ml Vial) 0 ml IV UD PRN PRN Reason: Per Sliding Scale Diagnostic Test (Pha) (Accu-Chek 1 Each Strip) 1 each FS ACHS [facility] Last Admin: 03/12/22 07:55 Dose: 1 each Docusate Sodium (Docusate Sodium 100 Mg Capsule) 100 mg PO BID [facility] Last Admin: 03/12/22 09:18 Dose: Not Given Enoxaparin Sodium (Enoxaparin 40 Mg/0.4 Ml Syringe) 40 mg SQ DAILY [facility] Last Admin: 03/12/22 09:05 Dose: 40 mg Furosemide (Furosemide 40 Mg/4 Ml Vial) 40 mg IV BIDD [facility] Last Admin: 03/12/22 08:54 Dose: 40 mg Glucose (Dextrose 31 Gm Oral.Susp) 15 gm PO PRN PRN PRN Reason: Hypoglycemia Guaifenesin (Guaifenesin/Dextromethorphan Oral Yesica) 10 ml PO Q4HP PRN PRN Reason: Cough Hydralazine HCl (Hydralazine 20 Mg/Ml Vial) 10 mg IV Q4-6HP PRN PRN Reason: Hypertension Insulin Human Lispro (Insulin Lispro 1 Unit/0.01 Ml Unit) 0 unit SQ ACHS [facility]; Protocol Last Admin: 03/12/22 07:56 Dose: Not Given Lactulose (Lactulose 20 Gm/30 Ml Oral.Yesica) 10 gm PO DAILYP PRN PRN Reason: Constipation Lisinopril (Lisinopril 10 Mg Tablet) 10 mg PO DAILY [facility] Last Admin: 03/12/22 09:26 Dose: 10 mg Magnesium Oxide (Magnesium Oxide 400 Mg Tablet) 400 mg PO DAILY [facility] Last Admin: 03/12/22 09:20 Dose: Not Given Magnesium Oxide (Magnesium Oxide 400 Mg Tablet) 400 mg PO BID [facility] Morphine Sulfate (Morphine 2 Mg/Ml Vial) 2 mg IV Q4HP PRN PRN Reason: Chest Pain Nitroglycerin (Nitroglycerin 0.4 Mg Tab.Subl) 0.4 mg SL Q5M PRN PRN Reason: Chest Pain Ondansetron HCl (Ondansetron 4 Mg/2 Ml Vial) 4 mg IV Q4HP PRN; Protocol PRN Reason: Nausea And Vomiting Budesonide-Glycopyr- Formoterol [Breztri] Inhaler 2 dose INH BID [facility] Triamcinolone Acetonide 0.1 % Ointment 1 dose TOPICAL BID [facility] Last Admin: 03/12/22 09:25 Dose: Not Given Potassium Chloride (Potassium Chloride 20 Meq Tablet) 40 meq PO BIDCC [facility] Psyllium Hydrophilic Mucilloid (Psyllium Husk 6 Gm Packet) 6 gm PO DAILY [facility] Last Admin: 03/12/22 09:20 Dose: Not Given Quetiapine Fumarate (Quetiapine 25 Mg Tablet) 50 mg PO HS [facility] Senna (Sennosides 1 Tablet) 2 tab PO HSP PRN PRN Reason: Constipation Sodium Chloride (0.9 % Sodium Chloride 10 Ml Syringe) 10 ml IV Q8 [facility] Last Admin: 03/12/22 05:44 Dose: 10 ml Spironolactone (Spironolactone 25 Mg Tablet) 25 mg PO DAILY [facility] Last Admin: 03/12/22 09:04 Dose: 25 mg Varenicline (Varenicline Tartrate 1 Mg Tablet) 1 mg PO BID [facility] Vitamin D (Vitamin D3 25 Mcg Tablet) 25 mcg PO DAILY [facility] Last Admin: 03/12/22 09:20 Dose: Not Given A/P Assessment and plan (1) CHF exacerbation: Status: Acute (2) Obstructive sleep apnea: Status: Chronic Comment: CPAP at 15 cm of water pressure with 3.5 L of oxygen (3) Type 2 diabetes mellitus without complications: Status: Chronic Qualifiers: Diabetes mellitus medical terminologist insulin use: without medical terminologist use Qualified Code(s): E11.9 - Type 2 diabetes mellitus without complications (4) Chronic obstructive pulmonary disease, unspecified: Status: Chronic Qualifiers: COPD type: chronic bronchitis Chronic bronchitis type: simple Qualified Code(s): J41.0 - Simple chronic bronchitis (5) Morbid obesity: Status: Chronic (6) Major depressive disorder, recurrent severe without psychotic features: Status: Acute (7) Hypertension: Status: Chronic Qualifiers: Hypertension type: essential hypertension Qualified Code(s): I10 - Essential (primary) hypertension (8) Hypokalemia: Status: Acute Narrative A/P Narrative: Assessment and Plans: 1. CHF with exacerbation: Recent echocardiogram showing systolic dysfunction with LVEF 34% Inpatient PCU with telemetry Supplemental oxygen Strict intake and output Daily weigh 2L/day fluid restriction Lasix 40mg IV BID Lisinopril Aldactone Beta arleen contraindicated during exacerbation Physical therapy 2. h/o COPD: Supplemental oxygen Continue bronchodilators from home regimen 3. FILIPE on CPAP: Continue CPAP while sleeping at night 4. Morbid obesity: Ocular Care Technician patient on lifestyle modifications including regular exercise and healthy diet in order to lose weight 5. T2DM: HgA1c 7.0 Hold oral hypoglycemics Accu Chek AC HS Insulin Lispro SSI AC HS Hypoglycemia protocol Diabetic diet 6. Essential HTN: Lasix 40mg IV BID Lisinopril Aldactone Beta arleen contraindicated during exacerbation Hydralazine 10mg IV q4-6hr, PRN SBP>=180 and/or DBP>=110mmHg 7. Hypokalemia: Likely 2/2 aggressive diuresis Potassium chloride 40mEq PO BID CMP in the morning to trend serum potassium level Also check serum Mg level and replace if needed GI ppx: not currently indicated DVT ppx: Lovenox Code status: DNR Prognosis: guarded Disposition: inpatient PCU; PT Time Spent With Patient Time: Total time spent is greater than 50% in coordination of care (as documented) at patient's floor/unit and/or counseling patient: Total time spent with greater than 50% in coordination of care (as documented) at patient's floor/unit and/or counseling patient:: 25 - 35 minutes QUALITY VTE Deep Vein Thrombosis/Pulmonary Embolism Present on Admission: No
[2022-03-12] MEDS: Budesonide-Glycopyr-Formoterol [Breztri] Inhaler INH SCH ×2 (15:17→20:50)
[2022-03-12] MEDS: VARENICLINE TARTRATE 1 MG TABLET PO SCH ×2 (15:17→20:50)
[2022-03-12] MEDS: POTASSIUM CHLORIDE 20 MEQ TABLET PO SCH ×3 (16:59→17:06)
[2022-03-12] MEDS ORDERED: AMITRIPTYLINE 25 MG TABLET PO SCH (21:00)
[2022-03-12] MEDS ORDERED: QUEtiapine 25 MG TABLET PO SCH (21:00)
[2022-03-13 07:29] LABS: Basophils # (Auto) 0.03 K/mcL (0.00-0.30); Basophils % (Auto) 0.4 % (0.0-2.0); Eosinophils % (Auto) 1.4 % (0.0-7.0); Hematocrit 38.9 % (34.1-44.9); Hemoglobin 12.9 g/dL (11.2-15.7); Lymphocytes # (Auto) 2.43 K/mcL (1.50-4.80); Lymphocytes % (Auto) 33.7 % (15.5-49.0); Mean Cell Volume 90.7 fL (80.0-100.0); Mean Corpuscular HGB Conc 33.2 g/dL (31.0-36.0); Mean Platelet Volume 9.3 fL (8.8-12.5); Monocytes # (Auto) 0.41 K/mcL (0.10-0.90); Monocytes % (Auto) 5.7 % (1.0-12.0); Neutrophils % (Auto) 58.7 % (38.0-78.0); Platelet Count 348 K/mcL (140-440); RBC 4.29 M/mcL (3.59-5.38); Red Cell Distribution Width 14.2 % (11.5-14.5); WBC 7.2 K/mcL (4.5-11.0)
[2022-03-13] MEDS: INSULIN LISPRO 1 UNIT/0.01 ML UNIT SQ SCH (08:04)
[2022-03-13] MEDS: 0.9 % SODIUM CHLORIDE 10 ML SYRINGE IV SCH (08:05)
[2022-03-13 08:14] LABS: ALT/SGPT 39 U/L (<40); AST/SGOT 33 U/L (<32); Albumin 2.9 gm/dL (3.2-5.2); Albumin/Globulin Ratio 0.8 (1.0-2.3); Alkaline Phosphatase 73 U/L (39-117); Bilirubin,Total 0.5 mg/dL (0.1-1.0); Blood Urea Nitrogen 10 mg/dL (6-20); Calcium 8.9 mg/dL (8.6-10.4); Carbon Dioxide 29 mmol/L (22-30); Chloride 100 mmol/L (96-108); Globulin 3.8 gm/dL (2.2-3.7); Glomerular Filtration Rate 70; Glucose 138 mg/dL (70-105); Phosphorous 4.3 mg/dL (2.5-4.5)
--- NOTE | 2022-03-13 08:33 | Discharge Summary ---
Discharge Provider Provider IMPORTANT FOLLOW-UP INFORMATION FOR PCP: Patient information: Note initiated : 03/13/22 at 8:31 am Service Date, if different from initiated Date: [] Patient: Rosmery Garcia 56 y/o F admitted on 03/11/22 for Heart Issue. Chief Complaint: [] Date of admission: 03/11/22 23:01 Discharge date: 03/13/22 Primary care physician: nAn Chi PA-C Attending physician on admission: Mike Gonzalez Consults: 03/11/22 Consult to Physician [CONS] Stat Comment: Consulting Provider: Mike Gonzalez Reason For Exam: Physician to Consult Attending physician on discharge: Mike Gonzalez COURSE Hospital Course Hospital course: Ms. Garcia is a 56 year old F history of recently diagnosed CHF, COPD, obstructive sleep apnea on CPAP, morbid obesity, type 2 diabetes mellitus, essential hypertensions, major depressive disorder, presenting with 2 weeks history of exertional dyspnea, shortness of breath, as well as 3-day history of chest pressure. 2-1/2 weeks ago, she presented to the urgent care center and was being diagnosed for bronchitis and was sent home with 10-day oral antibiotics. She initially improved in terms of her breathing but then she started to deteriorate again and has increasing shortness of breath. She also have exertional dyspnea over the past 2 weeks after ambulating for 20 feet. She denies any cough sputum productions or respiratory wheezings. She is complaining of diaphoresis. She denies fever or chills. She sleeps on a recliner. She also have noticed increased bilateral leg swellings. She denies any unintentional weight gain. Over the past 3 days, she is complaining of increasing chest pressure. She had a echocardiogram performed a week ago showing reduced systolic function with LVEF 34%. Vital signs at ED presentations only significant for mild tachycardia heart rate up to the 1 teens, and blood pressure slightly elevated with systolic blood pressure in the 160s mmHg. Rest of the vital signs within normal limits. Labs significant for lack of leukocytosis with WBC 10.1. D-dimer slightly elevated to 1.17. BNP 5377. Troponin 0.05. Andreea negative. CTA of the chest pending. Chest x-ray showing bilateral pulmonary edema suggestive of the presence of CHF. 03/12: Patient was on CPAP while sleeping last night and this morning she is tolerating room air. She is complaining of improving degree of shortness of breath. She denies any cough or wheezing at the moment. She denies any chest pain or chest tightness in the moment. She denies any fever chills or diaphoresis at the moment. Improving degree of energy level. Continue IV Lasix for aggressive diuresis. Continue fluid restrictions. Continue strict intake and output measurement and daily weight. Continue physical therapy and Occupational Therapy for placement planning. 03/13: Reached clinical stability, discharged home. Discharge diagnosis: CHF exacerbation Time Spent with Patient Time attestation: Total time spent providing and/or coordinating discharge services: Time spent: Less than 30 minutes EXAM Constitutional Vitals: Temp Pulse Resp BP Pulse Ox O2 Del Method O2 Flow Rate 36.8 C 99 H 25 H 149/99 92 5 03/13/22 04:00 03/13/22 06:02 03/13/22 06:02 03/13/22 06:02 03/13/22 06:02 03/13/22 06:02 03/13/22 06:02 General appearance: cooperative, morbidly obese and no acute distress Head Head exam: Present atraumatic and normocephalic Eye Eye exam: Present EOMI and PERRL ENT ENT exam: Present mucous membranes moist, normal exam and normal external ear exam Neck Neck exam: Present normal inspection; Absent lymphadenopathy, tenderness or thyromegaly Respiratory Respiratory exam: Absent accessory muscle use, respiratory distress or wheezes Cardiovascular Cardiovascular exam: Present normal rate and rhythm; Absent JVD GI/Abdominal GI/Abdominal exam: Present normal bowel sounds and soft; Absent organomegaly or tenderness Extremities Exam Extremities exam: Present full ROM, normal capillary refill, normal inspection and pedal edema; Absent tenderness Neurological Exam Neurological exam: Present alert, CN II-XII intact and oriented X3; Absent motor sensory deficit Psychiatric Psychiatric exam: Present normal affect and normal mood; Absent anxious or depressed Skin Skin exam: Present dry and intact Discharge Data Data Completed and Pending Labs on day of discharge: Labs from last 24 hours 03/13/22 03/13/22 03/12/22 05:43 05:43 08:08 WBC 7.2 RBC 4.29 Hgb 12.9 Hct 38.9 MCV 90.7 MCH 30.1 MCHC 33.2 RDW 14.2 Plt Count 348 MPV 9.3 Immature Gran % (Auto) 0.1 Neut % (Auto) 58.7 Lymph % (Auto) 33.7 [place] % (Auto) 5.7 Eos % (Auto) 1.4 Baso % (Auto) 0.4 Lymph # (Auto) 2.43 [place] # (Auto) 0.41 Eos # (Auto) 0.10 Baso # (Auto) 0.03 Immature Gran # 0.01 Absolute Neutrophils 4.24 Sodium 140 Potassium 3.3 Chloride 100 Carbon Dioxide 29 Anion Gap 11.0 BUN 10 Creatinine 0.9 GFR Calculation 70 Glucose 138 H Calcium 8.9 Phosphorus 4.3 Magnesium 1.6 Total Bilirubin 0.5 AST 33 H ALT 39 Alkaline Phosphatase 73 Troponin T 0.04 H* Total Protein 6.7 Albumin 2.9 L Globulin 3.8 H Albumin/Globulin Ratio 0.8 L Discharge Plan Patient/Caregiver Discharge Instructions Activity: increase activity as tolerated Diet: Consistent Carbohydrate Prescriptions: New spironolactone 25 mg Tablet 25 mg PO DAILY 30 Days Qty: 30 0RF potassium chloride [Klor-Con M20] 20 mEq Tablet,Er Particles/Crystals 40 meq PO DAILY 30 Days Qty: 30 0RF furosemide [Lasix] 40 mg tablet 40 mg PO BID Qty: 60 0RF carvedilol [Coreg] 3.125 mg tablet 3.125 mg PO BID Qty: 60 0RF Rx Instructions: must administer with a meal/food Continued amitriptyline 25 mg tablet 25 mg PO QHS Qty: 30 1RF buspirone 5 mg tablet 5 mg PO BID Qty: 60 1RF Hold Instructions: Doctor's Order quetiapine [Seroquel] 50 mg tablet 50 mg PO QHS Qty: 30 1RF Hold Instructions: Doctor's Order Metamucil (sugar) Powder 2 tsp PO QDAY cholecalciferol (vitamin D3) 25 mcg (1,000 unit) capsule 25 mcg PO QDAY Qty: 90 4RF Breztri Aerosphere 160-9-4.8 mcg/actuation HFA aerosol inhaler 2 inh inhalation QAM AND QPM Qty: 10.7 6RF Rx Instructions: rinse,gargle and spit with water after use. CPAP Machine See Rx Instructions .ROUTE .COMPLEX Label Comments: with O2 at night time 2-4L Rx Instructions: with O2 at night time 2-4L varenicline [Chantix] 1 mg tablet 1 mg PO BID Qty: 56 1RF magnesium oxide 1 tab PO QDAY triamcinolone acetonide 0.1 % ointment 1 applic topical BID Qty: 30 1RF albuterol sulfate 90 mcg/actuation HFA aerosol inhaler 2 puff INHALATION Q6H PRN (Reason: shortness of breath or wheezing) Qty: 18 2RF benazepril 10 mg tablet 10 mg PO DAILY Qty: 90 1RF Janumet XR 50-1,000 mg tablet, ER multiphase 24 hr 2 tab PO QPM Qty: 180 3RF ondansetron 4 mg tablet,disintegrating 4 mg PO Q6H PRN (Reason: nausea and vomiting) Qty: 12 0RF hydrocodone-acetaminophen 5-325 mg tablet 1 tab PO TIDP PRN (Reason: pain) Discontinued hydrochlorothiazide 25 mg tablet 25 mg PO QDAY Qty: 90 1RF Hold Instructions: Order Change No Action (DME) CPAP [id number] pressure bled with 2LPM O2 Qty: 1 0RF Rx Instructions: As directed, chart note states 2-4 L 02 bled in. Follow Up Plan Follow up with: vinayak Garcia [Other] Ann Chi PA-C [Primary Care Provider] - Patient Disposition: Home, Self-Care Rehab Potential: Good I certify that the patient requires SNF services: No Overall status at discharge: patient is back to baseline Discharge Orders: Discharge Order (Routine); Ordered 03/13/22 Ordered By: Mike BARRIOS VTE Deep Vein Thrombosis/Pulmonary Embolism Present on Admission: No
[2022-03-13] MEDS: ENOXAPARIN 40 MG/0.4 ML SYRINGE SQ SCH ×2 (09:21→09:46)
[2022-03-13] MEDS: busPIRone 5 MG TABLET PO SCH (09:22)
[2022-03-13] MEDS: SPIRONOLACTONE 25 MG TABLET PO SCH (09:22)
[2022-03-13] MEDS: POTASSIUM CHLORIDE 20 MEQ TABLET PO SCH (09:23)
[2022-03-13] MEDS: LISINOPRIL 10 MG TABLET PO SCH (09:23)
[2022-03-13] MEDS: DOCUSATE SODIUM 100 MG CAPSULE PO SCH (09:23)
[2022-03-13] MEDS: MAGNESIUM OXIDE 400 MG TABLET PO SCH ×2 (09:23)
[2022-03-13] MEDS: FUROSEMIDE 40 MG/4 ML VIAL IV SCH (09:23)
[2022-03-13] MEDS: PSYLLIUM HUSK 6 GM PACKET PO SCH (09:24)
[2022-03-13] MEDS: VARENICLINE TARTRATE 1 MG TABLET PO SCH (09:25)
[2022-03-13] MEDS: Budesonide-Glycopyr-Formoterol [Breztri] Inhaler INH SCH (09:25)
[2022-03-13] MEDS: Triamcinolone Acetonide 0.1 % ointment TOPICAL SCH (09:25)
[2022-03-13] MEDS: VITAMIN D3 25 MCG TABLET PO SCH (09:25)
[2022-03-13] MEDS ORDERED: FLU VACC QS2022-23(6MOS UP)/PF 60 MCG/0.5 ML SYRINGE IM ONE (10:00)
== END 2022-03-13 11:00 | disposition home or self-care (01) | DRG 291 ==
LOC: ED 18:34 → ICU 23:01
PROVIDERS: ADMIT Internal Medicine; ATTEND Internal Medicine

== ENCOUNTER 2022-09-25 13:11 | Inpatient (IN) ==
[2022-09-25] MEDS ORDERED: 0.9 % SODIUM CHLORIDE 500 ML IV ONE (13:43)
[2022-09-25 14:12] LABS: POC Calcium, Ionized 0.7 (1.16-1.32); POC Creatinine 1.5 (0.6-1.2); POC Potassium 4.3 (3.3-5.1)
[2022-09-25 14:12] LABS: POC INR 1.3 (0.8-1.2); POC Pro Time 14.9 (11.9-14.5)
[2022-09-25] MEDS ORDERED: CALCIUM GLUCONATE 4.65 MEQ/10 ML VIAL IV ONE ×2 (14:55→19:10)
[2022-09-25] MEDS: CALCIUM GLUCONATE 7 MEQ in DEXTROSE 5% IN WATER 50 ML IV ONE ×2 (14:57→14:58)
[2022-09-25] MEDS ORDERED: CALCIUM GLUCONATE 4.65 MEQ in DEXTROSE 5% IN WATER 50 ML IV ONE (15:01)
--- NOTE | 2022-09-25 15:05 | Cat Scan Report ---
CLINICAL INFORMATION: Vertigo and Left facial numbness COMPARISON: None. TECHNIQUE: 2.5 mm helical slices were obtained in the skull base to vertex. Following reconstruction, axial reformatted images were reviewed at bone and parenchymal windows. The exam was performed using radiation dose optimization techniques including, but not limited to, automated exposure control, adjustment of the mA and/or kV according to patient size and use of iterative reconstruction technique. FINDINGS: The ventricles, sulci, fissures, and cisterns are normal in size and configuration for age. No extra-axial fluid collections are identified. The cerebrum, brainstem and cerebellum are unremarkable. There is no evidence of hemorrhage, mass effect, or edema. Bone windows show no osseous abnormality. Moderate mucosal thickening left maxillary sinus mild scattered mucosal thickening right maxillary sinus and ethmoid and sphenoid sinuses. IMPRESSION: No intracerebral abnormality. Bilateral maxillary ethmoid sinusitis Interpreted and Authenticated by: Yeison Berger 09/25/22
[2022-09-25] MEDS ORDERED: ACETAMINOPHEN 325 MG TABLET PO ONE (15:11)
--- NOTE | 2022-09-25 15:11 | Cat Scan Report ---
CLINICAL INFORMATION: Dizziness and vertigo COMPARISON: None. TECHNIQUE: 80 cc of Isovue-300 were injected intravenously followed by 40 cc of normal saline flush. Using SmartPrep, 0.625 helical slices were obtained from the thoracic aortic arch through the mcgrath of [place]. Following reconstruction, 2.5 mm sagittal, coronal and axial reformatted images were processed. MIPS , 3-D volume rendering and CPR images were also constructed. The exam was performed using radiation dose optimization techniques including, but not limited to, automated exposure control, adjustment of the mA and/or kV according to patient size and use of iterative reconstruction technique. FINDINGS: The thoracic aortic arch is normal diameter with minimal intimal thickening. 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 Other branching is conventional. The brachiocephalic, both subclavian, both common, internal and external carotid arteries are widely patent. The left internal carotid artery takes a medial course in the retropharyngeal region. Soft tissues show scattered thyroid nodules which are unchanged from 02/19/2022 thyroid ultrasound. No other soft tissue abnormality. IMPRESSION: Normal exam Interpreted and Authenticated by: Yeison Berger 09/25/22
--- NOTE | 2022-09-25 15:25 | Cat Scan Report ---
CLINICAL INFORMATION: Left facial numbness COMPARISON: None. TECHNIQUE: 80 cc of Isovue-370 were injected intravenously , and using SmartPrep to maximize cerebral arterial opacification, 0.625 mm helical slices were obtained from the skull base through the cerebral vertex. Following reconstruction , sagittal, coronal and axial reformatted images were processed and reviewed at multiple windows and levels. 3D volume rendered and MIP images were acquired at a independent workstation. The exam was performed using radiation dose optimization techniques including, but not limited to, automated exposure control, adjustment of the mA and/or kV according to patient size and use of iterative reconstruction technique. FINDINGS: The intracranial internal carotid, vertebral, basilar, anterior, middle and posterior cerebral arteries and their branches are well-opacified and normal in contour and caliber without significant stenosis, occlusion or other pathology. Superficial/deep cerebral veins and deep venous sinuses are widely patent IMPRESSION: Normal exam Interpreted and Authenticated by: Yeison Berger 09/25/22
[2022-09-25 15:47] LABS: Basophils # (Auto) 0.02 K/mcL (0.00-0.30); Basophils % (Auto) 0.2 % (0.0-2.0); Eosinophils % (Auto) 1.2 % (0.0-7.0); Hematocrit 30.6 % (34.1-44.9); Hemoglobin 9.8 g/dL (11.2-15.7); Lymphocytes # (Auto) 1.88 K/mcL (1.50-4.80); Lymphocytes % (Auto) 22.1 % (15.5-49.0); Mean Cell Volume 92.2 fL (80.0-100.0); Mean Platelet Volume 9.6 fL (8.8-12.5); Monocytes # (Auto) 0.62 K/mcL (0.10-0.90); Monocytes % (Auto) 7.3 % (1.0-12.0); Neutrophils % (Auto) 68.6 % (38.0-78.0); Platelet Count 245 K/mcL (140-440); RBC 3.32 M/mcL (3.59-5.38); Red Cell Distribution Width 13.5 % (11.5-14.5); WBC 8.5 K/mcL (4.5-11.0)
[2022-09-25 15:48] LABS: ALT/SGPT 30 U/L (<40); AST/SGOT 34 U/L (<32); Albumin 3.2 gm/dL (3.2-5.2); Alkaline Phosphatase 66 U/L (39-117); Bilirubin,Direct < 0.2 mg/dL (0-0.3); Bilirubin,Total 0.5 mg/dL (0.1-1.0); Globulin 3.8 gm/dL (2.2-3.7)
[2022-09-25] MEDS ORDERED: MAGNESIUM SULFATE 2 GM/50 ML BAG IV ONE (15:53)
[2022-09-25 16:04] LABS: Phosphorous 4.3 mg/dL (2.5-4.5)
[2022-09-25 16:21] LABS: Vitamin D 25 Hydroxy-SO 6.43 ng/mL (>30.00)
[2022-09-25 16:29] LABS: POC Calcium, Ionized 0.73 (1.16-1.32); POC Creatinine 1.4 (0.6-1.2); POC Potassium 4.2 (3.3-5.1)
--- NOTE | 2022-09-25 16:29 | Emergency Department Note ---
HPI General Chief complaint: Dizziness Stated complaint: Dizzy Time Seen by Provider: 09/25/22 13:18 Source: patient Mode of arrival: ambulatory Limitations: no limitations History of Present Illness HPI Narrative: Narrative: This is a 57-year-old female with a history of type 2 diabetes, on insulin, hypertension, dyslipidemia presents to the emergency department with 2 days of dizziness. She describes this as a sensation of feeling unsteady on her feet she denies any presyncopal symptoms or sensation of the room spinning. Patient also states just prior to arrival she developed left perioral anesthesia. She denies any focal weakness, visual changes, headache. Patient does state that she feels shaky in her arms and legs. Of note patient was started on Farxiga 4 days ago along with doxycycline for cellulitis of her pannus. Related Data Home Medications Medication Instructions Recorded Confirmed CPAP Machine See Rx Instructions .Route .COMPLEX 07/18/18 09/22/22 acetaminophen 325 mg capsule 650 mg PO Q4H PRN 05/04/22 09/22/22 aspirin 81 mg tablet,delayed 81 mg PO QDAY 05/04/22 09/22/22 release atorvastatin 40 mg tablet 40 mg PO QDAY 05/04/22 09/22/22 sitagliptin phos 50 mg-metformin 2 tab PO QAM 05/04/22 09/26/22 ER 1,000 mg tablet,extend rel 24h mp (Janumet XR) blood sugar diagnostic (True #10 ea 08/13/22 09/26/22 Metrix Glucose Test Strip) carvedilol 25 mg tablet 25 mg PO BID 08/13/22 09/22/22 furosemide 40 mg tablet (Lasix) 40 mg PO BID 08/13/22 09/22/22 lancets 33 gauge (TRUEplus Lancets) #100 ea 08/13/22 09/26/22 psyllium seed (sugar) oral powder 2 tsp PO QDAY PRN Constipation 08/13/22 09/26/22 (Metamucil (sugar) oral powder) Previous Rx's Medication Instructions Recorded CPAP [id number] pressure bled with #1 ea 07/25/19 2LPM O2 albuterol sulfate 90 mcg/actuation 2 puff inhalation Q6H PRN 09/29/21 aerosol inhaler shortness of breath or wheezing #18 grams ondansetron 4 mg disintegrating 4 mg PO Q6H PRN nausea and 03/24/22 tablet vomiting #30 tabs blood-glucose meter #1 ea 08/07/22 empty container (SharpSafety #1 ea 08/07/22 Container) lancets 30 gauge and blood glucose #200 ea 08/07/22 strips combo pack pen needle, diabetic 32 gauge x #100 ea 08/07/22 1/6" (NovoFine Plus) varenicline 1 mg tablet (Chantix) 1 mg PO BID #56 tabs 08/10/22 amitriptyline 100 mg tablet 100 mg PO QHS Mood #30 tabs 08/13/22 budesonide-formoterol HFA 160 2 puff inhalation BID #10.2 grams 08/21/22 mcg-4.5 mcg/actuation aerosol inhaler (Symbicort) hydrocodone 5 mg-acetaminophen 325 1 tab PO TIDP PRN pain #90 tabs 08/31/22 mg tablet spironolactone 25 mg tablet 25 mg PO DAILY 30 days #30 tabs 09/03/22 insulin glargine 100 unit/mL (3 20 unit (0.2 mL) subcut QDAY #15 mL 09/04/22 mL) subcutaneous pen (Lantus Solostar U-100 Insulin) insulin lispro 100 unit/mL 5 unit (0.05 mL) subcut TID #15 mL 09/04/22 subcutaneous pen (Humalog KwikPen (U-100) Insulin) benazepril 10 mg tablet 10 mg PO DAILY #90 tabs 09/16/22 dapagliflozin 5 mg tablet (Farxiga) 5 mg PO QAM #30 tabs 09/21/22 doxycycline hyclate 100 mg tablet 100 mg PO bid 7 days #14 tabs 09/22/22 Allergies Allergy/AdvReac Type Severity Reaction Status Date / Time azithromycin Allergy Mild Hives Verified 09/22/22 08:27 Cefaclor [From [facility]] Allergy Mild Hives Verified 09/22/22 08:27 clindamycin Allergy Mild Hives Verified 09/22/22 08:27 prednisone AdvReac Mild Agitated Verified 09/22/22 08:27 Review of Systems ROS ROS Narrative: Narrative: All systems ED: reviewed and negative except as stated. PFSH Narrative Patient History Narrative: Narrative: Medical/Surgical/Family History All Active Problems (Updated 09/25/22 @ 17:16 by Ji Mariano MD) Hypocalcemia (Acute) Hypomagnesemia (Acute) Abdominal pain (Chronic) Small bowel obstruction (Chronic) Ischemic bowel disease (Chronic) Pharyngitis (Chronic) Cellulitis (Chronic) Sinusitis (Chronic) Asthma (Chronic) Back pain (Chronic) Carpal tunnel syndrome (Chronic) Fracture treatment convalescence or palliative care (Chronic) Fatigue (Chronic) Unspecified hemorrhoids (Chronic) Hyperlipidemia (Chronic) Hypertension (Chronic) Incontinence of urine (Chronic) Obesity (Chronic) Obstructive sleep apnea (Chronic) Proteinuria (Chronic) Plantar fasciitis (Chronic) Incontinence (Chronic) Abdominal hernia (Chronic) Low back pain (Chronic) Other intervertebral disc degeneration, lumbosacral region (Chronic) Shortness of breath (Chronic) Acute bronchitis, unspecified (Chronic) Type 2 diabetes mellitus without complications (Chronic) Chronic obstructive pulmonary disease, unspecified (Chronic) Candidiasis, unspecified (Chronic) Nicotine dependence, cigarettes, uncomplicated (Chronic) 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 mellitus (Chronic) Persistent proteinuria (Chronic) Proteinuria due to type 2 diabetes mellitus (Chronic) Anxiety (Chronic) Morbid obesity (Chronic) Chronic diarrhea (Chronic) Diverticular disease of colon (Chronic) Tubular adenoma of colon (Chronic) Unspecified abdominal hernia without obstruction or gangrene (Chronic) Cramp and spasm (Chronic) Diverticulitis of intestine, part unspecified, with perforation and abscess without bleeding (Chronic) Paresthesia of skin (Chronic) Hernia (Chronic) Spasm of esophagus (Chronic) Sinusitis (Chronic) Hypercholesterolemia (Chronic) Iron deficiency anemia (Chronic) Malaise and fatigue (Chronic) Recurrent incisional hernia with incarceration (Chronic) Gall bladder disease (Chronic) Hiatal hernia (Chronic) Incarcerated ventral hernia (Chronic) Urinary tract infection (Acute) Elbow pain, right (Acute) Sleep apnea with use of continuous positive airway pressure (CPAP) (Chronic) Dry mouth (Acute) Subacromial impingement (Acute) Left knee pain (Acute) Acute URI (Acute) Medial meniscus tear (Acute) Flank pain (Acute) Diverticulitis (Acute) Tobacco abuse (Acute) Viral syndrome (Acute) Cough (Acute) Low back pain (Acute) Nausea (Acute) Abdominal cramping (Acute) History of diverticulitis (Acute) Constipation (Acute) Diverticulitis (Acute) Laceration (Acute) Avulsion of skin (Acute) Acute URI (Acute) COPD (chronic obstructive pulmonary disease) with emphysema (Chronic) Cough (Acute) Vitamin D deficiency (Acute) Medication management (Acute) Pneumonia (Acute) Major depressive disorder, recurrent severe without psychotic features (Acute) Non-compliant patient (Chronic) Hypersomnia (Chronic) Dyspnea on exertion (Acute) Difficulty clearing secretions (Chronic) Tobacco use (Chronic) Gastroesophageal reflux disease (Chronic) CHF exacerbation (Acute) Hypokalemia (Acute) Nocturnal hypoxia (Chronic) Pulmonary scarring (Chronic) Sprain of left shoulder (Acute) Congestive heart failure (Chronic) Vaginal yeast infection (Acute) Persistent depressive disorder, severe (Acute) Medical History Abdominal cramping Abdominal hernia Abdominal pain Acute bronchitis, unspecified Anxiety Asthma Back pain Candidiasis, unspecified Carpal tunnel syndrome Chronic diarrhea Chronic obstructive pulmonary disease, unspecified Constipation COPD (chronic obstructive pulmonary disease) with emphysema Cough Cramp and spasm Depression Diverticular disease of colon Diverticulitis of intestine, part unspecified, with perforation and abscess without bleeding Fatigue Fracture treatment convalescence or palliative care Gall bladder disease Hernia Hiatal hernia History of diverticulitis Hypercholesterolemia Hyperlipidemia Hypertension Incarcerated ventral hernia Incontinence Incontinence of urine Iron deficiency anemia Ischemic bowel disease Low back pain Low back pain Major depressive disorder, recurrent severe without psychotic features Major depressive disorder, recurrent, mild Malaise and fatigue Medication management Morbid obesity Nausea Nicotine dependence, cigarettes, uncomplicated Obesity Obstructive sleep apnea CPAP at 15-20 cm of water pressure with 2 L of oxygen Other intervertebral disc degeneration, lumbosacral region Paresthesia of skin Persistent depressive disorder, severe Pharyngitis Plantar fasciitis Proteinuria Recurrent incisional hernia with incarceration Shortness of breath Sinusitis Small bowel obstruction Spasm of esophagus Tubular adenoma of colon Type 2 diabetes mellitus without complications Unspecified abdominal hernia without obstruction or gangrene Unspecified hemorrhoids Vaginal yeast infection Viral syndrome Vitamin D deficiency Surgical History History of carpal tunnel surgery Both hands History of cholecystectomy History of colonoscopy 05/24/18-Dr Lopez and 09/04/13 Dr Cunha History of colostomy History of hernia surgery (~2013) incarcerated ventral hernia History of herniorrhaphy (~07/2007) ventral incisional hernia History of repair of hiatal hernia History of right and left heart catheterization (05/11/22) History of surgery plantar fasciitis History of total abdominal hysterectomy and bilateral salpingo-oophorectomy (~01/2007) Family History Father Diabetes mellitus, type II Hypertension, essential Heart disease Heart attack Mother Family history of coronary artery disease Mother has signs of CAD Arthritis Family/Other Cancer Grandparen,ts Maternal & Paternal Brother Hypertension, essential Social History Smoking Status: Current some day smoker Alcohol Intake Frequency: holiday/special occasion only Substance Use: does not use Exam Narrative Narrative: Narrative: Vital signs noted General: Awake. Alert. No distress. HEENT: NCAT PERRL EOMI. No conjunctivitis. Membranes moist. Neck: Supple, trachea midline Cardiovascular: RRR. No murmur. No rubs. No gallops. Respiratory: No respiratory distress. Breath sounds equal. Lungs clear. Gastrointestinal: Soft. No tenderness Musculoskeletal: No pain. No soft tissue swelling. Good ROM. No signs injury Skin: Warm. Dry. No rash Neurologic: Alert and oriented x3 moves, no pronator drift, normal [id number] full strength the upper and lower extremities patient does have increased deep tendon reflexes the patellar with 3 beats of clonus at the ankles bilaterally General Limitations: no limitations Course Vital Signs Vital signs: Vital Signs Pulse Rate 87 09/25/22 13:17 Respiratory Rate 18 09/25/22 13:17 Blood Pressure 108/67 09/25/22 13:17 Pulse Oximetry (%) 94 09/25/22 13:17 Oxygen Delivery Method Room Air 09/25/22 13:17 Temperature 97.3 F 09/26/22 08:00 Pulse Rate 86 09/26/22 08:00 Respiratory Rate 16 09/26/22 08:00 Blood Pressure 156/70 09/26/22 08:00 Pulse Oximetry (%) 95 09/26/22 08:00 Oxygen Delivery Method Room Air 09/26/22 08:00 [facility] MDM Narrative Medical decision making narrative: Narrative: Patient presents to the emergency department with what she describes as dizziness feeling unsteady on her feet. Is been going on for 2 days. She had some associated left facial numbness which was more acute today she is outside the window for tPA based on her last known well. Her exam she does have increased deep tendon reflexes. She had subjective diminished sensation to the left lip. CT scan of the brain, CTA of the head and neck was obtained that did not show any large vessel occlusion, intracranial hemorrhage. Patient's hemoglobin shows a slight anemia compared to her baseline no leukocytosis. Patient's ionized calcium is .71 and her calcium on her chemistry is also very low. In addition patient was found to have hypomagnesemia. Patient was given intravenous repletion for both of these including 2 g of magnesium sulfate, 1 g of calcium gluconate. Patient's QTc is slightly prolonged at 481. I think that the patient's neurologic symptoms are more related to these electrolyte derangements and CVA. The patient has significant neurologic findings I think will benefit from intravenous electrolyte repletion along with further work-up of the cause of her hypocalcemia considerations include medication induced including from her furosemide, Farxiga, hypoparathyroidism. Patient has a normal phosphorus level. I have reviewed patient's urgent care note from 09/22/2022. I have spoke with the hospitalist who is agreeable for admission. Lab Data 09/25/22 13:52 09/26/22 05:20 Labs: Lab Results 09/25/22 09/25/22 09/25/22 Range/Units 13:52 13:52 13:52 WBC 8.5 (4.5-11.0) K/mcL RBC 3.32 L (3.59-5.38) M/mcL Hgb 9.8 L (11.2-15.7) g/dL Hct 30.6 L (34.1-44.9) % POC Hct (36-48) MCV 92.2 (80.0-100.0) fL MCH 29.5 (26.0-34.0) pg MCHC 32.0 (31.0-36.0) g/dL RDW 13.5 (11.5-14.5) % Plt Count 245 (140-440) K/mcL MPV 9.6 (8.8-12.5) fL Immature Gran % (Auto) 0.6 H (0.0-0.5) % Neut % (Auto) 68.6 (38.0-78.0) % Lymph % (Auto) 22.1 (15.5-49.0) % Morrison % (Auto) 7.3 (1.0-12.0) % Eos % (Auto) 1.2 (0.0-7.0) % Baso % (Auto) 0.2 (0.0-2.0) % Lymph # (Auto) 1.88 (1.50-4.80) K/mcL Morrison # (Auto) 0.62 (0.10-0.90) K/mcL Eos # (Auto) 0.10 (0.00-0.70) K/mcL Baso # (Auto) 0.02 (0.00-0.30) K/mcL Immature Gran # 0.05 (0.00-0.05) K/mcl Absolute Neutrophils 5.85 (1.80-8.00) K/mcL POC PT (11.9-14.5) POC INR (0.8-1.2) APTT 24.7 (20.0-37.0) sec POC Sodium (133-145) POC Potassium (3.3-5.1) POC Chloride (96-108) POC Total CO2 (22-30) POC BUN (6-20) POC Creatinine (0.6-1.2) POC Glucose (70-105) Calcium (8.6-10.4) mg/dL POC WB Ioniz Calcium (1.16-1.32) Phosphorus (2.5-4.5) mg/dL Magnesium (1.6-2.5) mg/dL Total Bilirubin 0.5 (0.1-1.0) mg/dL Direct Bilirubin < 0.2 (0-0.3) mg/dL AST 34 H (<32) U/L ALT 30 (<40) U/L Alkaline Phosphatase 66 (39-117) U/L Total Protein 7.0 (5.9-8.4) gm/dL Albumin 3.2 (3.2-5.2) gm/dL Globulin 3.8 H (2.2-3.7) gm/dL 25-OH Vitamin D Total (>30.00) ng/mL PTH Intact (15.0-65.0) pg/mL Urine Color Urine Appearance (Clear) Urine pH (5.0-9.0) Ur Specific [place] (1.000-1.035) Urine Protein (Negative) mg/dL Urine Glucose (UA) (Negative) mg/dL Urine Ketones (Negative) mg/dL Urine Occult Blood (Negative) mg/dL Urine Nitrate (Negative) Urine Bilirubin (Negative) mg/dL Urine Urobilinogen mg/dL Ur Leukocyte Esterase (Negative) /uL Urine RBC (0-3) /hpf Urine WBC (0-4) /hpf Ur Squamous Epith Cells (0-4) /hpf Urine Bacteria (0) /hpf Urine Mucus (None) /hpf Ur Culture Indicated? POC Troponin I (0.00-0.08) 09/25/22 09/25/22 09/25/22 Range/Units 13:52 13:52 13:52 WBC (4.5-11.0) K/mcL RBC (3.59-5.38) M/mcL Hgb (11.2-15.7) g/dL Hct (34.1-44.9) % POC Hct (36-48) MCV (80.0-100.0) fL MCH (26.0-34.0) pg MCHC (31.0-36.0) g/dL RDW (11.5-14.5) % Plt Count (140-440) K/mcL MPV (8.8-12.5) fL Immature Gran % (Auto) (0.0-0.5) % Neut % (Auto) (38.0-78.0) % Lymph % (Auto) (15.5-49.0) % Morrison % (Auto) (1.0-12.0) % Eos % (Auto) (0.0-7.0) % Baso % (Auto) (0.0-2.0) % Lymph # (Auto) (1.50-4.80) K/mcL [place] # (Auto) (0.10-0.90) K/mcL Eos # (Auto) (0.00-0.70) K/mcL Baso # (Auto) (0.00-0.30) K/mcL Immature Gran # (0.00-0.05) K/mcl Absolute Neutrophils (1.80-8.00) K/mcL POC PT (11.9-14.5) POC INR (0.8-1.2) APTT (20.0-37.0) sec POC Sodium (133-145) POC Potassium (3.3-5.1) POC Chloride (96-108) POC Total CO2 (22-30) POC BUN (6-20) POC Creatinine (0.6-1.2) POC Glucose (70-105) Calcium 5.8 L* (8.6-10.4) mg/dL POC WB Ioniz Calcium (1.16-1.32) Phosphorus 4.3 (2.5-4.5) mg/dL Magnesium 0.7 L* (1.6-2.5) mg/dL Total Bilirubin (0.1-1.0) mg/dL Direct Bilirubin (0-0.3) mg/dL AST (<32) U/L ALT (<40) U/L Alkaline Phosphatase (39-117) U/L Total Protein (5.9-8.4) gm/dL Albumin (3.2-5.2) gm/dL Globulin (2.2-3.7) gm/dL 25-OH Vitamin D Total (>30.00) ng/mL PTH Intact (15.0-65.0) pg/mL Urine Color Urine Appearance (Clear) Urine pH (5.0-9.0) Ur Specific [place] (1.000-1.035) Urine Protein (Negative) mg/dL Urine Glucose (UA) (Negative) mg/dL Urine Ketones (Negative) mg/dL Urine Occult Blood (Negative) mg/dL Urine Nitrate (Negative) Urine Bilirubin (Negative) mg/dL Urine Urobilinogen mg/dL Ur Leukocyte Esterase (Negative) /uL Urine RBC (0-3) /hpf Urine WBC (0-4) /hpf Ur Squamous Epith Cells (0-4) /hpf Urine Bacteria (0) /hpf Urine Mucus (None) /hpf Ur Culture Indicated? POC Troponin I (0.00-0.08) 09/25/22 09/25/22 09/25/22 Range/Units 13:52 13:52 13:55 WBC (4.5-11.0) K/mcL RBC (3.59-5.38) M/mcL Hgb (11.2-15.7) g/dL Hct (34.1-44.9) % POC Hct (36-48) MCV (80.0-100.0) fL MCH (26.0-34.0) pg MCHC (31.0-36.0) g/dL RDW (11.5-14.5) % Plt Count (140-440) K/mcL MPV (8.8-12.5) fL Immature Gran % (Auto) (0.0-0.5) % Neut % (Auto) (38.0-78.0) % Lymph % (Auto) (15.5-49.0) % Morrison % (Auto) (1.0-12.0) % Eos % (Auto) (0.0-7.0) % Baso % (Auto) (0.0-2.0) % Lymph # (Auto) (1.50-4.80) K/mcL [place] # (Auto) (0.10-0.90) K/mcL Eos # (Auto) (0.00-0.70) K/mcL Baso # (Auto) (0.00-0.30) K/mcL Immature Gran # (0.00-0.05) K/mcl Absolute Neutrophils (1.80-8.00) K/mcL POC PT 14.9 H (11.9-14.5) POC INR 1.3 H (0.8-1.2) APTT (20.0-37.0) sec POC Sodium (133-145) POC Potassium (3.3-5.1) POC Chloride (96-108) POC Total CO2 (22-30) POC BUN (6-20) POC Creatinine (0.6-1.2) POC Glucose (70-105) Calcium (8.6-10.4) mg/dL POC WB Ioniz Calcium (1.16-1.32) Phosphorus (2.5-4.5) mg/dL Magnesium (1.6-2.5) mg/dL Total Bilirubin (0.1-1.0) mg/dL Direct Bilirubin (0-0.3) mg/dL AST (<32) U/L ALT (<40) U/L Alkaline Phosphatase (39-117) U/L Total Protein (5.9-8.4) gm/dL Albumin (3.2-5.2) gm/dL Globulin (2.2-3.7) gm/dL 25-OH Vitamin D Total 6.43 L (>30.00) ng/mL PTH Intact 76.6 H (15.0-65.0) pg/mL Urine Color Urine Appearance (Clear) Urine pH (5.0-9.0) Ur Specific [place] (1.000-1.035) Urine Protein (Negative) mg/dL Urine Glucose (UA) (Negative) mg/dL Urine Ketones (Negative) mg/dL Urine Occult Blood (Negative) mg/dL Urine Nitrate (Negative) Urine Bilirubin (Negative) mg/dL Urine Urobilinogen mg/dL Ur Leukocyte Esterase (Negative) /uL Urine RBC (0-3) /hpf Urine WBC (0-4) /hpf Ur Squamous Epith Cells (0-4) /hpf Urine Bacteria (0) /hpf Urine Mucus (None) /hpf Ur Culture Indicated? POC Troponin I (0.00-0.08) 09/25/22 09/25/22 09/25/22 Range/Units 14:00 14:02 15:46 WBC (4.5-11.0) K/mcL RBC (3.59-5.38) M/mcL Hgb (11.2-15.7) g/dL Hct (34.1-44.9) % POC Hct 31.0 L (36-48) MCV (80.0-100.0) fL MCH (26.0-34.0) pg MCHC (31.0-36.0) g/dL RDW (11.5-14.5) % Plt Count (140-440) K/mcL MPV (8.8-12.5) fL Immature Gran % (Auto) (0.0-0.5) % Neut % (Auto) (38.0-78.0) % Lymph % (Auto) (15.5-49.0) % Morrison % (Auto) (1.0-12.0) % Eos % (Auto) (0.0-7.0) % Baso % (Auto) (0.0-2.0) % Lymph # (Auto) (1.50-4.80) K/mcL [place] # (Auto) (0.10-0.90) K/mcL Eos # (Auto) (0.00-0.70) K/mcL Baso # (Auto) (0.00-0.30) K/mcL Immature Gran # (0.00-0.05) K/mcl Absolute Neutrophils (1.80-8.00) K/mcL POC PT (11.9-14.5) POC INR (0.8-1.2) APTT (20.0-37.0) sec POC Sodium 138 (133-145) POC Potassium 4.3 (3.3-5.1) POC Chloride 100 (96-108) POC Total CO2 25.0 (22-30) POC BUN 17 (6-20) POC Creatinine 1.5 H (0.6-1.2) POC Glucose 192 H (70-105) Calcium (8.6-10.4) mg/dL POC WB Ioniz Calcium 0.70 L* (1.16-1.32) Phosphorus (2.5-4.5) mg/dL Magnesium (1.6-2.5) mg/dL Total Bilirubin (0.1-1.0) mg/dL Direct Bilirubin (0-0.3) mg/dL AST (<32) U/L ALT (<40) U/L Alkaline Phosphatase (39-117) U/L Total Protein (5.9-8.4) gm/dL Albumin (3.2-5.2) gm/dL Globulin (2.2-3.7) gm/dL 25-OH Vitamin D Total (>30.00) ng/mL PTH Intact (15.0-65.0) pg/mL Urine Color Straw Urine Appearance Clear (Clear) Urine pH 5.0 (5.0-9.0) Ur Specific [place] 1.010 (1.000-1.035) Urine Protein Negative (Negative) mg/dL Urine Glucose (UA) >=500 A (Negative) mg/dL Urine Ketones Negative (Negative) mg/dL Urine Occult Blood Negative (Negative) mg/dL Urine Nitrate Negative (Negative) Urine Bilirubin Negative (Negative) mg/dL Urine Urobilinogen Negative mg/dL Ur Leukocyte Esterase Negative (Negative) /uL Urine RBC < 1 (0-3) /hpf Urine WBC < 1 (0-4) /hpf Ur Squamous Epith Cells 1 (0-4) /hpf Urine Bacteria Few A (0) /hpf Urine Mucus Few A (None) /hpf Ur Culture Indicated? Yes POC Troponin I < 0.02 (0.00-0.08) 04/14/23 04/14/23 Range/Units 16:26 18:03 WBC (4.5-11.0) K/mcL RBC (3.59-5.38) M/mcL Hgb (11.2-15.7) g/dL Hct (34.1-44.9) % POC Hct 29.0 L (36-48) MCV (80.0-100.0) fL MCH (26.0-34.0) pg MCHC (31.0-36.0) g/dL RDW (11.5-14.5) % Plt Count (140-440) K/mcL MPV (8.8-12.5) fL Immature Gran % (Auto) (0.0-0.5) % Neut % (Auto) (38.0-78.0) % Lymph % (Auto) (15.5-49.0) % [place] % (Auto) (1.0-12.0) % Eos % (Auto) (0.0-7.0) % Baso % (Auto) (0.0-2.0) % Lymph # (Auto) (1.50-4.80) K/mcL [place] # (Auto) (0.10-0.90) K/mcL Eos # (Auto) (0.00-0.70) K/mcL Baso # (Auto) (0.00-0.30) K/mcL Immature Gran # (0.00-0.05) K/mcl Absolute Neutrophils (1.80-8.00) K/mcL POC PT (11.9-14.5) POC INR (0.8-1.2) APTT (20.0-37.0) sec POC Sodium 139 (133-145) POC Potassium 4.2 (3.3-5.1) POC Chloride 101 (96-108) POC Total CO2 24.0 (22-30) POC BUN 9 (6-20) POC Creatinine 1.4 H (0.6-1.2) POC Glucose 157 H (70-105) Calcium (8.6-10.4) mg/dL POC WB Ioniz Calcium 0.73 L* (1.16-1.32) Phosphorus (2.5-4.5) mg/dL Magnesium (1.6-2.5) mg/dL Total Bilirubin (0.1-1.0) mg/dL Direct Bilirubin (0-0.3) mg/dL AST (<32) U/L ALT (<40) U/L Alkaline Phosphatase (39-117) U/L Total Protein (5.9-8.4) gm/dL Albumin (3.2-5.2) gm/dL Globulin (2.2-3.7) gm/dL 25-OH Vitamin D Total (>30.00) ng/mL PTH Intact 159.9 H (15.0-65.0) pg/mL Urine Color Urine Appearance (Clear) Urine pH (5.0-9.0) Ur Specific [place] (1.000-1.035) Urine Protein (Negative) mg/dL Urine Glucose (UA) (Negative) mg/dL Urine Ketones (Negative) mg/dL Urine Occult Blood (Negative) mg/dL Urine Nitrate (Negative) Urine Bilirubin (Negative) mg/dL Urine Urobilinogen mg/dL Ur Leukocyte Esterase (Negative) /uL Urine RBC (0-3) /hpf Urine WBC (0-4) /hpf Ur Squamous Epith Cells (0-4) /hpf Urine Bacteria (0) /hpf Urine Mucus (None) /hpf Ur Culture Indicated? POC Troponin I (0.00-0.08) EKG Data EKG #1: EKG attestation: Yes I reviewed and interpreted this EKG., Yes There are no EKG findings of acute coronary syndrome and Yes This EKG will be read by dust collector operator EKG results narrative: EKG per my interpretation shows a sinus rhythm with a rate of 80 normal axis normal R wave progression there is no evidence of acute ischemia QTc is slightly prolonged at 481 Discharge Plan Patient/Caregiver Discharge Instructions Pt seen by CASING BUILDER/PA only: No Clinical Impression: Hypocalcemia, Hypomagnesemia Patient Disposition: Xfer As Inpt ([facility]) Condition: Fair Discharge Date/Time: 09/25/22 19:07
[2022-09-25 16:53] LABS: Appearance,Urine CLEAR (Clear); Bacteria,Urine FEW /hpf (0); Bilirubin,Urine Negative (Negative); Color,Urine STRAW; Culture Indicated,Urine Yes; Glucose,Urine (UA) >=500 mg/dL (Negative); Ketones,Urine Negative (Negative); Leukocyte Esterase,Urine Negative /uL (Negative); Mucus,Urine FEW /hpf; Nitrate,Urine Negative (Negative); Protein,Urine Negative (Negative); Urine Blood Negative (Negative); Urine RBC < 1 /hpf (0-3); Urine Squamous Epithelial Cell 1 /hpf (0-4); Urine WBC < 1 /hpf (0-4); Urobilinogen,Urine Negative
--- NOTE | 2022-09-25 17:22 | Internal Med History&Physical ---
HPI History of Present Illness Patient information: Note initiated : 09/25/22 at 5:18 pm Service Date, if different from initiated Date: [] Patient: Rosmery Garcia a 57 y/o F admitted on for Dizzy. Chief Complaint: [Fatigue, weakness] Chief complaint: Paresthesias History of present illness: Ms. Garcia is a 57 year old morbidly obese female with a complex past medical history significant for FILIPE, diabetes mellitus type 2, COPD, CAD, and CKD stage II who presents to the hospital with 3-day history of fatigue, malaise, and weakness. The patient states that she has been sleeping most of the day and at night. She lives with her daughter. The daughter was quite concerned and brought her in to the ER today for further evaluation. She also complains of paresthesia of her face and extremities. The patient states that she has been struggling with an abdominal wound infection and was also started on doxycycline recently. Her primary care physician recently started her on Farxiga. On arrival to the ER, she was hemodynamically stable and afebrile however she was found to have severe electrolyte derangements with an ionized calcium of 0.7 and a magnesium of 0.8. The hospitalist service was asked to admit the patient for further management and evaluation of her severe hypocalcemia and hypomagnesemia. Review of Systems All systems: reviewed and no additional remarkable complaints except as stated Constitutional Constitutional: Present as per HPI EENT Eyes: Present as per HPI; Absent blurry vision Cardiovascular Cardiovascular: Present as per HPI; Absent chest pain, dyspnea, dyspnea on exertion, leg edema or palpatations Respiratory Respiratory: Present as per HPI; Absent cough, dyspnea, dyspnea on exertion, wheezing or stridor Gastrointestinal Gastrointestinal: Present as per HPI; Absent abdominal pain, diarrhea, dysphagia, hematemesis, melena, nausea or vomiting Musculoskeletal Musculoskeletal: Present as per HPI; Absent joint swelling, limited range of motion, muscle cramps, muscle weakness or myalgias Integumentary Integumentary: Present as per HPI; Absent erythema, new lesions, rash or wounds Neurological Neurological: Present as per HPI; Absent abnormal gait, behavioral changes, focal weakness, headache(s), loss of vision, numbness, sensory deficit or syncope Endocrine Endocrine: Absent change in body appearance, fatigue or heat intolerance Hematologic/Lymphatic Hematologic/Lymphatic: Present as per HPI PFSH PFSH All Active Problems (Updated 09/25/22 @ 17:16 by Ji Mariano MD) Hypocalcemia (Acute) Hypomagnesemia (Acute) Abdominal pain (Chronic) Small bowel obstruction (Chronic) Ischemic bowel disease (Chronic) Pharyngitis (Chronic) Cellulitis (Chronic) Sinusitis (Chronic) Asthma (Chronic) Back pain (Chronic) Carpal tunnel syndrome (Chronic) Fracture treatment convalescence or palliative care (Chronic) Fatigue (Chronic) Unspecified hemorrhoids (Chronic) Hyperlipidemia (Chronic) Hypertension (Chronic) Incontinence of urine (Chronic) Obesity (Chronic) Obstructive sleep apnea (Chronic) Proteinuria (Chronic) Plantar fasciitis (Chronic) Incontinence (Chronic) Abdominal hernia (Chronic) Low back pain (Chronic) Other intervertebral disc degeneration, lumbosacral region (Chronic) Shortness of breath (Chronic) Acute bronchitis, unspecified (Chronic) Type 2 diabetes mellitus without complications (Chronic) Chronic obstructive pulmonary disease, unspecified (Chronic) Candidiasis, unspecified (Chronic) Nicotine dependence, cigarettes, uncomplicated (Chronic) 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 mellitus (Chronic) Persistent proteinuria (Chronic) Proteinuria due to type 2 diabetes mellitus (Chronic) Anxiety (Chronic) Morbid obesity (Chronic) Chronic diarrhea (Chronic) Diverticular disease of colon (Chronic) Tubular adenoma of colon (Chronic) Unspecified abdominal hernia without obstruction or gangrene (Chronic) Cramp and spasm (Chronic) Diverticulitis of intestine, part unspecified, with perforation and abscess without bleeding (Chronic) Paresthesia of skin (Chronic) Hernia (Chronic) Spasm of esophagus (Chronic) Sinusitis (Chronic) Hypercholesterolemia (Chronic) Iron deficiency anemia (Chronic) Malaise and fatigue (Chronic) Recurrent incisional hernia with incarceration (Chronic) Gall bladder disease (Chronic) Hiatal hernia (Chronic) Incarcerated ventral hernia (Chronic) Urinary tract infection (Acute) Elbow pain, right (Acute) Sleep apnea with use of continuous positive airway pressure (CPAP) (Chronic) Dry mouth (Acute) Subacromial impingement (Acute) Left knee pain (Acute) Acute URI (Acute) Medial meniscus tear (Acute) Flank pain (Acute) Diverticulitis (Acute) Tobacco abuse (Acute) Viral syndrome (Acute) Cough (Acute) Low back pain (Acute) Nausea (Acute) Abdominal cramping (Acute) History of diverticulitis (Acute) Constipation (Acute) Diverticulitis (Acute) Laceration (Acute) Avulsion of skin (Acute) Acute URI (Acute) COPD (chronic obstructive pulmonary disease) with emphysema (Chronic) Cough (Acute) Vitamin D deficiency (Acute) Medication management (Acute) Pneumonia (Acute) Major depressive disorder, recurrent severe without psychotic features (Acute) Non-compliant patient (Chronic) Hypersomnia (Chronic) Dyspnea on exertion (Acute) Difficulty clearing secretions (Chronic) Tobacco use (Chronic) Gastroesophageal reflux disease (Chronic) CHF exacerbation (Acute) Hypokalemia (Acute) Nocturnal hypoxia (Chronic) Pulmonary scarring (Chronic) Sprain of left shoulder (Acute) Congestive heart failure (Chronic) Vaginal yeast infection (Acute) Persistent depressive disorder, severe (Acute) Medical History Abdominal cramping Abdominal hernia Abdominal pain Acute bronchitis, unspecified Anxiety Asthma Back pain Candidiasis, unspecified Carpal tunnel syndrome Chronic diarrhea Chronic obstructive pulmonary disease, unspecified Constipation COPD (chronic obstructive pulmonary disease) with emphysema Cough Cramp and spasm Depression Diverticular disease of colon Diverticulitis of intestine, part unspecified, with perforation and abscess without bleeding Fatigue Fracture treatment convalescence or palliative care Gall bladder disease Hernia Hiatal hernia History of diverticulitis Hypercholesterolemia Hyperlipidemia Hypertension Incarcerated ventral hernia Incontinence Incontinence of urine Iron deficiency anemia Ischemic bowel disease Low back pain Low back pain Major depressive disorder, recurrent severe without psychotic features Major depressive disorder, recurrent, mild Malaise and fatigue Medication management Morbid obesity Nausea Nicotine dependence, cigarettes, uncomplicated Obesity Obstructive sleep apnea CPAP at 15-20 cm of water pressure with 2 L of oxygen Other intervertebral disc degeneration, lumbosacral region Paresthesia of skin Persistent depressive disorder, severe Pharyngitis Plantar fasciitis Proteinuria Recurrent incisional hernia with incarceration Shortness of breath Sinusitis Small bowel obstruction Spasm of esophagus Tubular adenoma of colon Type 2 diabetes mellitus without complications Unspecified abdominal hernia without obstruction or gangrene Unspecified hemorrhoids Vaginal yeast infection Viral syndrome Vitamin D deficiency Surgical History History of carpal tunnel surgery Both hands History of cholecystectomy History of colonoscopy 05/24/18-Dr Lopez and 09/04/13 Dr Cunha History of colostomy History of hernia surgery (~2013) incarcerated ventral hernia History of herniorrhaphy (~07/2007) ventral incisional hernia History of repair of hiatal hernia History of right and left heart catheterization (05/11/22) History of surgery plantar fasciitis History of total abdominal hysterectomy and bilateral salpingo-oophorectomy (~01/2007) Family History Father Diabetes mellitus, type II Hypertension, essential Heart disease Heart attack Mother Family history of coronary artery disease Mother has signs of CAD Arthritis Family/Other Cancer Grandparen,ts Maternal & Paternal Brother Hypertension, essential Social History foster care: No household members: spouse and family housing: house lives independently: Yes marital status: education level: high school occupational status: unemployed occupation: [employer]was fired from [employer] well-balanced diet: rarely or never high-fat food intake: 3 or more times/day daily servings fruits/ve-1 daily servings of milk/calcium: 0-1 physical activity: none smoking status: Current some day smoker alcohol intake frequency: holiday/special occasion only substance use type: does not use MEDS/ALLERGIES Home Medications and Allergies Home Medications Medication Instructions Recorded Confirmed Type CPAP Machine See Rx Instructions .Route .COMPLEX 07/18/18 09/22/22 History CPAP [id number] pressure bled with #1 ea 07/25/19 09/22/22 Rx 2LPM O2 albuterol sulfate 90 mcg/actuation 2 puff inhalation Q6H PRN 09/29/21 09/22/22 Rx aerosol inhaler shortness of breath or wheezing #18 grams ondansetron 4 mg disintegrating 4 mg PO Q6H PRN nausea and 03/24/22 09/22/22 Rx tablet vomiting #30 tabs acetaminophen 325 mg capsule 650 mg PO Q4H PRN 05/04/22 09/22/22 History aspirin 81 mg tablet,delayed 81 mg PO QDAY 05/04/22 09/22/22 History release atorvastatin 40 mg tablet 40 mg PO QDAY 05/04/22 09/22/22 History sitagliptin phos 50 mg-metformin 2 tab PO QAM 05/04/22 09/22/22 History ER 1,000 mg tablet,extend rel 24h mp (Janumet XR) blood-glucose meter #1 ea 08/07/22 09/22/22 Rx empty container (SharpSafety #1 ea 08/07/22 09/22/22 Rx Container) lancets 30 gauge and blood glucose #200 ea 08/07/22 09/22/22 Rx strips combo pack pen needle, diabetic 32 gauge x #100 ea 08/07/22 09/22/22 Rx 1/6" (NovoFine Plus) varenicline 1 mg tablet (Chantix) 1 mg PO BID #56 tabs 08/10/22 09/22/22 Rx amitriptyline 100 mg tablet 100 mg PO QHS Mood #30 tabs 08/13/22 09/22/22 Rx blood sugar diagnostic (True #10 ea 08/13/22 09/22/22 History Metrix Glucose Test Strip) carvedilol 25 mg tablet 25 mg PO BID 08/13/22 09/22/22 History furosemide 40 mg tablet (Lasix) 40 mg PO BID 08/13/22 09/22/22 History lancets 33 gauge (TRUEplus Lancets) #100 ea 08/13/22 09/22/22 History psyllium seed (sugar) oral powder 2 tsp PO QDAY PRN 08/13/22 09/22/22 History (Metamucil (sugar) oral powder) budesonide-formoterol HFA 160 2 puff inhalation BID #10.2 grams 08/21/22 09/22/22 Rx mcg-4.5 mcg/actuation aerosol inhaler (Symbicort) hydrocodone 5 mg-acetaminophen 325 1 tab PO TIDP PRN pain #90 tabs 08/31/22 09/22/22 Rx mg tablet spironolactone 25 mg tablet 25 mg PO DAILY 30 days #30 tabs 09/03/22 09/22/22 Rx insulin glargine 100 unit/mL (3 20 unit (0.2 mL) subcut QDAY #15 mL 09/04/22 09/22/22 Rx mL) subcutaneous pen (Lantus Solostar U-100 Insulin) insulin lispro 100 unit/mL 5 unit (0.05 mL) subcut TID #15 mL 09/04/22 09/22/22 Rx subcutaneous pen (Humalog KwikPen (U-100) Insulin) benazepril 10 mg tablet 10 mg PO DAILY #90 tabs 09/16/22 09/22/22 Rx dapagliflozin 5 mg tablet (Farxiga) 5 mg PO QAM #30 tabs 09/21/22 09/22/22 Rx doxycycline hyclate 100 mg tablet 100 mg PO bid 7 days #14 tabs 09/22/22 09/22/22 Rx Allergies Allergy/AdvReac Type Severity Reaction Status Date / Time azithromycin Allergy Mild Hives Verified 09/22/22 08:27 Cefaclor [From [facility]] Allergy Mild Hives Verified 09/22/22 08:27 clindamycin Allergy Mild Hives Verified 09/22/22 08:27 prednisone AdvReac Mild Agitated Verified 09/22/22 08:27 EXAM Constitutional Vitals: Pulse Resp BP Pulse Ox O2 Del Method 79 17 113/58 93 Room Air 09/25/22 17:05 09/25/22 17:05 09/25/22 17:05 09/25/22 17:05 09/25/22 13:58 General appearance: average body habitus Head Head exam: Present atraumatic, normal inspection and normocephalic Eye Eye exam: Present EOMI, normal appearance and PERRL; Absent conjunctival injection ENT ENT exam: Present normal exam; Absent mucous membranes dry Neck Neck exam: Present full ROM; Absent lymphadenopathy Respiratory Respiratory exam: Present normal respiratory exam and CTAB; Absent decreased breath sounds, respiratory distress or wheezes Cardiovascular Cardiovascular exam: Present normal rate and rhythm and RRR; Absent JVD GI/Abdominal GI/Abdominal exam: Present normal bowel sounds and soft; Absent diminished bowel sounds, distended, guarding, mass, rebound or tenderness Neurological Exam Neurological exam: Present alert, CN II-XII intact and oriented X3 Psychiatric Psychiatric exam: Present normal affect and normal mood Skin Skin exam: Present intact and warm; Absent erythema, pallor, petechiae or rash DATA Data Completed and Pending Labs: Labs from last 24 hours 09/25/22 09/25/22 09/25/22 16:26 15:46 14:02 WBC RBC Hgb Hct POC Hct 29.0 L MCV MCH MCHC RDW Plt Count MPV Immature Gran % (Auto) Neut % (Auto) Lymph % (Auto) [place] % (Auto) Eos % (Auto) Baso % (Auto) Lymph # (Auto) [place] # (Auto) Eos # (Auto) Baso # (Auto) Immature Gran # Absolute Neutrophils POC PT POC INR APTT POC Sodium 139 POC Potassium 4.2 POC Chloride 101 POC Total CO2 24.0 POC BUN 9 POC Creatinine 1.4 H POC Glucose 157 H Calcium POC WB Ioniz Calcium 0.73 L* Phosphorus Magnesium Total Bilirubin Direct Bilirubin AST ALT Alkaline Phosphatase Total Protein Albumin Globulin 25-OH Vitamin D Total Vit D 1,25-Dihydroxy PTH Intact Urine Color Straw Urine Appearance Clear Urine pH 5.0 Ur Specific [place] 1.010 Urine Protein Negative Urine Glucose (UA) >=500 A Urine Ketones Negative Urine Occult Blood Negative Urine Nitrate Negative Urine Bilirubin Negative Urine Urobilinogen Negative Ur Leukocyte Esterase Negative Urine RBC < 1 Urine WBC < 1 Ur Squamous Epith Cells 1 Urine Bacteria Few A Urine Mucus Few A Ur Culture Indicated? Yes POC Troponin I < 0.02 09/25/22 09/25/22 09/25/22 14:00 13:55 13:52 WBC RBC Hgb Hct POC Hct 31.0 L MCV MCH MCHC RDW Plt Count MPV Immature Gran % (Auto) Neut % (Auto) Lymph % (Auto) [place] % (Auto) Eos % (Auto) Baso % (Auto) Lymph # (Auto) [place] # (Auto) Eos # (Auto) Baso # (Auto) Immature Gran # Absolute Neutrophils POC PT 14.9 H POC INR 1.3 H APTT POC Sodium 138 POC Potassium 4.3 POC Chloride 100 POC Total CO2 25.0 POC BUN 17 POC Creatinine 1.5 H POC Glucose 192 H Calcium POC WB Ioniz Calcium 0.70 L* Phosphorus Magnesium Total Bilirubin Direct Bilirubin AST ALT Alkaline Phosphatase Total Protein Albumin Globulin 25-OH Vitamin D Total 6.43 L Vit D 1,25-Dihydroxy Pending PTH Intact Urine Color Urine Appearance Urine pH Ur Specific [place] Urine Protein Urine Glucose (UA) Urine Ketones Urine Occult Blood Urine Nitrate Urine Bilirubin Urine Urobilinogen Ur Leukocyte Esterase Urine RBC Urine WBC Ur Squamous Epith Cells Urine Bacteria Urine Mucus Ur Culture Indicated? POC Troponin I 09/25/22 09/25/22 09/25/22 13:52 13:52 13:52 WBC RBC Hgb Hct POC Hct MCV MCH MCHC RDW Plt Count MPV Immature Gran % (Auto) Neut % (Auto) Lymph % (Auto) [place] % (Auto) Eos % (Auto) Baso % (Auto) Lymph # (Auto) [place] # (Auto) Eos # (Auto) Baso # (Auto) Immature Gran # Absolute Neutrophils POC PT POC INR APTT POC Sodium POC Potassium POC Chloride POC Total CO2 POC BUN POC Creatinine POC Glucose Calcium 5.8 L* POC WB Ioniz Calcium Phosphorus 4.3 Magnesium Total Bilirubin Direct Bilirubin AST ALT Alkaline Phosphatase Total Protein Albumin Globulin 25-OH Vitamin D Total Vit D 1,25-Dihydroxy PTH Intact 76.6 H Urine Color Urine Appearance Urine pH Ur Specific [place] Urine Protein Urine Glucose (UA) Urine Ketones Urine Occult Blood Urine Nitrate Urine Bilirubin Urine Urobilinogen Ur Leukocyte Esterase Urine RBC Urine WBC Ur Squamous Epith Cells Urine Bacteria Urine Mucus Ur Culture Indicated? POC Troponin I 09/25/22 09/25/22 09/25/22 13:52 13:52 13:52 WBC RBC Hgb Hct POC Hct MCV MCH MCHC RDW Plt Count MPV Immature Gran % (Auto) Neut % (Auto) Lymph % (Auto) [place] % (Auto) Eos % (Auto) Baso % (Auto) Lymph # (Auto) [place] # (Auto) Eos # (Auto) Baso # (Auto) Immature Gran # Absolute Neutrophils POC PT POC INR APTT 24.7 POC Sodium POC Potassium POC Chloride POC Total CO2 POC BUN POC Creatinine POC Glucose Calcium POC WB Ioniz Calcium Phosphorus Magnesium 0.7 L* Total Bilirubin 0.5 Direct Bilirubin < 0.2 AST 34 H ALT 30 Alkaline Phosphatase 66 Total Protein 7.0 Albumin 3.2 Globulin 3.8 H 25-OH Vitamin D Total Vit D 1,25-Dihydroxy PTH Intact Urine Color Urine Appearance Urine pH Ur Specific [place] Urine Protein Urine Glucose (UA) Urine Ketones Urine Occult Blood Urine Nitrate Urine Bilirubin Urine Urobilinogen Ur Leukocyte Esterase Urine RBC Urine WBC Ur Squamous Epith Cells Urine Bacteria Urine Mucus Ur Culture Indicated? POC Troponin I 09/25/22 13:52 WBC 8.5 RBC 3.32 L Hgb 9.8 L Hct 30.6 L POC Hct MCV 92.2 MCH 29.5 MCHC 32.0 RDW 13.5 Plt Count 245 MPV 9.6 Immature Gran % (Auto) 0.6 H Neut % (Auto) 68.6 Lymph % (Auto) 22.1 [place] % (Auto) 7.3 Eos % (Auto) 1.2 Baso % (Auto) 0.2 Lymph # (Auto) 1.88 [place] # (Auto) 0.62 Eos # (Auto) 0.10 Baso # (Auto) 0.02 Immature Gran # 0.05 Absolute Neutrophils 5.85 POC PT POC INR APTT POC Sodium POC Potassium POC Chloride POC Total CO2 POC BUN POC Creatinine POC Glucose Calcium POC WB Ioniz Calcium Phosphorus Magnesium Total Bilirubin Direct Bilirubin AST ALT Alkaline Phosphatase Total Protein Albumin Globulin 25-OH Vitamin D Total Vit D 1,25-Dihydroxy PTH Intact Urine Color Urine Appearance Urine pH Ur Specific [place] Urine Protein Urine Glucose (UA) Urine Ketones Urine Occult Blood Urine Nitrate Urine Bilirubin Urine Urobilinogen Ur Leukocyte Esterase Urine RBC Urine WBC Ur Squamous Epith Cells Urine Bacteria Urine Mucus Ur Culture Indicated? POC Troponin I A/P Assessment and plan (1) Hypocalcemia: Status: Acute (2) Hyperlipidemia: Status: Chronic (3) Type 2 diabetes mellitus without complications: Status: Chronic Qualifiers: Diabetes mellitus termination clerk insulin use: without shelter use Qualified Code(s): E11.9 - Type 2 diabetes mellitus without complications (4) CKD (chronic kidney disease) stage 2, GFR 60-89 ml/min: Status: Suspected (5) Morbid obesity: Status: Chronic Narrative A/P Narrative: The patient is on numerous medications and there is concerns for polypharmacy. Her diuretics including furosemide and Aldactone are likely leading to hypomagnesemia which in turn can lead to severe hypocalcemia due to vitamin D/PTH resistance. She also has underlying CKD. The patient's PTH, PTrH will be checked. Her vitamin D levels will also be checked. We will hold her home antihypertensives and diuretics. The patient will be hydrated with IV fluids, receive IV magnesium and IV calcium gluconate. Medication reconciliation will be performed. Time Spent With Patient Time: Total time spent is greater than 50% in coordination of care (as documented) at patient's floor/unit and/or counseling patient: Subsequent: Total time with patient: 50 - 65 Minutes
[2022-09-25] MEDS ORDERED: DEXTROSE 31 GM ORAL.SUSP PO PRN (19:10)
[2022-09-25] MEDS ORDERED: DEXTROSE 50% 50 ML VIAL IV PRN (19:10)
[2022-09-25] MEDS ORDERED: ACETAMINOPHEN 325 MG TABLET PO PRN (19:10)
[2022-09-25] MEDS ORDERED: IBUPROFEN 600 MG TABLET PO PRN (19:10)
[2022-09-25] MEDS ORDERED: ONDANSETRON 4 MG/2 ML VIAL IV PRN (19:10)
[2022-09-25] MEDS ORDERED: CALCIUM GLUCONATE 9.3 MEQ in DEXTROSE 5% IN WATER 50 ML IV ONE (19:45)
[2022-09-25] MEDS ORDERED: CALCIUM GLUCONATE 4.65 MEQ/10 ML VIAL ONE (21:20)
[2022-09-25] MEDS: INSULIN LISPRO 1 UNIT/0.01 ML UNIT SQ SCH (21:23)
[2022-09-25] MEDS: LACTATED RINGERS 1,000 ML IV SCH (21:24)
[2022-09-25] MEDS: SENNOSIDES 1 TABLET PO SCH (23:22)
[2022-09-25] MEDS: DOCUSATE SODIUM 100 MG CAPSULE PO SCH (23:22)
[2022-09-25] MEDS: 0.9 % SODIUM CHLORIDE 10 ML SYRINGE IV SCH (23:23)
[2022-09-26 06:29] LABS: ALT/SGPT 25 U/L (<40); AST/SGOT 25 U/L (<32); Albumin/Globulin Ratio 0.8 (1.0-2.3); Alkaline Phosphatase 62 U/L (39-117); Bilirubin,Total 0.4 mg/dL (0.1-1.0); Blood Urea Nitrogen 12 mg/dL (6-20); Calcium 6.5 mg/dL (8.6-10.4); Carbon Dioxide 23 mmol/L (22-30); Chloride 99 mmol/L (96-108); Globulin 3.6 gm/dL (2.2-3.7); Glomerular Filtration Rate 49; Glucose 175 mg/dL (70-105)
[2022-09-26] MEDS ORDERED: CALCIUM GLUCONATE 4.65 MEQ/10 ML VIAL IV ONE (06:34)
[2022-09-26] MEDS ORDERED: MAGNESIUM SULFATE 8.12 MEQ/2 ML VIAL IV SCH (07:00)
[2022-09-26] MEDS ORDERED: MAGNESIUM SULFATE 4 GM/100 ML BAG IV ONE (07:45)
[2022-09-26] MEDS ORDERED: CALCIUM GLUCONATE 9.3 MEQ in DEXTROSE 5% IN WATER 50 ML IV ONE (08:00)
[2022-09-26] MEDS: 0.9 % SODIUM CHLORIDE 10 ML SYRINGE IV SCH ×3 (08:01→20:58)
[2022-09-26] MEDS: LACTATED RINGERS 1,000 ML IV SCH ×3 (08:04→13:40)
[2022-09-26] MEDS: INSULIN LISPRO 1 UNIT/0.01 ML UNIT SQ SCH ×4 (08:15→20:57)
[2022-09-26] MEDS: DOCUSATE SODIUM 100 MG CAPSULE PO SCH ×3 (08:37→20:58)
[2022-09-26] MEDS: ENOXAPARIN 40 MG/0.4 ML SYRINGE SQ SCH (08:37)
[2022-09-26] MEDS: PIPERACILLIN SODIUM/TAZOBACTAM 3.375 GM in DEXTROSE 5% IN WATER 50 ML IV SCH ×3 (08:37→17:11)
[2022-09-26] MEDS: Budesonide-Formoterol [Symbicort] 160-4.5 mcg Inhaler INH SCH ×2 (08:39→20:58)
--- NOTE | 2022-09-26 10:37 | Internal Med Progress Note ---
SUBJECTIVE Subjective Patient information: Note initiated : 09/26/22 at 10:36 am Service Date, if different from initiated Date: [] Patient: Rosmery Garcia 57 y/o F admitted on 09/25/22 for Dizzy-Altered Mental Status. Chief Complaint: [Weakness] Principal diagnosis: Electrolyte derangements Interval history: The patient continues to complain of mild paresthesia today however states that she is feeling much better. Her blood pressure has improved. Discussed the case with the RN at the bedside. Constitutional Vitals: Vital Signs Temp Pulse Resp BP Pulse Ox O2 Del Method 97.3 F 86 16 156/70 95 Room Air 09/26/22 08:00 09/26/22 08:00 09/26/22 08:00 09/26/22 08:00 09/26/22 08:00 09/26/22 08:00 Period Temp Pulse Resp BP Sys/Soler Pulse Ox O2 Del Method O2 Flow Rate Last 24 Hr 97.3 F-99.4 F 73-92 15- 104-156/51-95 92-96 CPAP-Room Air Intake and Output 09/25/22 09/26/22 09/26/22 19:59 03:59 11:59 Intake Total 610 70 120 Balance 610 70 120 Weight 129.416 kg 129.416 kg Intake & Output: Intake & Output 09/25/22 09/26/22 09/26/22 19:59 03:59 11:59 Intake Total 610 70 120 Balance 610 70 120 Weight 129.416 kg 129.416 kg Intake: IV 610 70 120 Sodium Chloride 0.9% 500 ml @ 500 Wide Open IV BOLUS ONE Rx#: [id number] Calcium Gluconate 9.3 Meq In 60 70 70 Dextrose 5% in Water 50 ml @ 70 mls/hr IV ONCE ONE Rx#: [id number] Zosyn 3.375 gm In Dextrose 5% 50 in Water 50 ml @ 100 mls/hr IV Q6H [facility] Rx#:[id number] Other: Meal Breakfast Percent of Meal Consumed 100% Feeding Ability Independent Urine Color Yellow Urine Odor Normal Stool Size Moderate Stool Color Brown Stool Consistency Normal for Patient # Voids 1 Head Head exam: Present atraumatic and normal inspection Eye Eye exam: Present normal appearance ENT ENT exam: Present mucous membranes moist, normal exam and normal external ear exam Neck Neck exam: Present normal inspection Respiratory Respiratory exam: Present normal respiratory exam Cardiovascular Cardiovascular exam: Present normal rate and rhythm GI/Abdominal GI/Abdominal exam: Present normal bowel sounds Back Exam Back exam: Present normal inspection Neurological Exam Neurological exam: Present alert and oriented X3 Skin Skin exam: Present intact and warm OBJ DATA Labs 09/25/22 13:52 09/26/22 05:20 Labs: Abnormal Lab Results 09/26/22 09/26/22 09/25/22 07:05 05:20 18:03 RBC Hgb Hct POC Hct Immature Gran % (Auto) POC PT POC INR Creatinine 1.2 H POC Creatinine Glucose 175 H POC Glucose Calcium 6.5 L POC WB Ioniz Calcium Ionized Calcium Jane 0.77 L Magnesium 1.1 L AST Albumin 3.0 L Globulin Albumin/Globulin Ratio 0.8 L 25-OH Vitamin D Total PTH Intact 159.9 H Urine Glucose (UA) Urine Bacteria Urine Mucus 09/25/22 09/25/22 09/25/22 16:26 15:46 14:00 RBC Hgb Hct POC Hct 29.0 L 31.0 L Immature Gran % (Auto) POC PT POC INR Creatinine POC Creatinine 1.4 H 1.5 H Glucose POC Glucose 157 H 192 H Calcium POC WB Ioniz Calcium 0.73 L* 0.70 L* Ionized Calcium Jane Magnesium AST Albumin Globulin Albumin/Globulin Ratio 25-OH Vitamin D Total PTH Intact Urine Glucose (UA) >=500 A Urine Bacteria Few A Urine Mucus Few A 09/25/22 09/25/22 09/25/22 13:55 13:52 13:52 RBC Hgb Hct POC Hct Immature Gran % (Auto) POC PT 14.9 H POC INR 1.3 H Creatinine POC Creatinine Glucose POC Glucose Calcium POC WB Ioniz Calcium Ionized Calcium Jane Magnesium AST Albumin Globulin Albumin/Globulin Ratio 25-OH Vitamin D Total 6.43 L PTH Intact 76.6 H Urine Glucose (UA) Urine Bacteria Urine Mucus 09/25/22 09/25/22 09/25/22 13:52 13:52 13:52 RBC Hgb Hct POC Hct Immature Gran % (Auto) POC PT POC INR Creatinine POC Creatinine Glucose POC Glucose Calcium 5.8 L* POC WB Ioniz Calcium Ionized Calcium Jane Magnesium 0.7 L* AST 34 H Albumin Globulin 3.8 H Albumin/Globulin Ratio 25-OH Vitamin D Total PTH Intact Urine Glucose (UA) Urine Bacteria Urine Mucus 09/25/22 13:52 RBC 3.32 L Hgb 9.8 L Hct 30.6 L POC Hct Immature Gran % (Auto) 0.6 H POC PT POC INR Creatinine POC Creatinine Glucose POC Glucose Calcium POC WB Ioniz Calcium Ionized Calcium Jane Magnesium AST Albumin Globulin Albumin/Globulin Ratio 25-OH Vitamin D Total PTH Intact Urine Glucose (UA) Urine Bacteria Urine Mucus Meds: Medications Acetaminophen (Acetaminophen 325 Mg Tablet) 650 mg PO Q6HP PRN; Protocol PRN Reason: Per Pain Protocol/Fever > 101 Dextrose (Dextrose 50% 50 Ml Vial) 0 ml IV UD PRN PRN Reason: Per Sliding Scale Diagnostic Test (Pha) (Accu-Chek 1 Each Strip) 1 each FS [facility] Last Admin: 09/26/22 08:15 Dose: 1 each Docusate Sodium (Docusate Sodium 100 Mg Capsule) 100 mg PO BID [facility] Last Admin: 09/26/22 08:40 Dose: Not Given Enoxaparin Sodium (Enoxaparin 40 Mg/0.4 Ml Syringe) 40 mg SQ DAILY [facility] Last Admin: 09/26/22 08:37 Dose: 40 mg Glucose (Dextrose 31 Gm Oral.Susp) 15 gm PO PRN PRN PRN Reason: Hypoglycemia Lactated Ringer's (Lactated Ringers) 1,000 mls @ 100 mls/hr IV .Q10H [facility] Last Admin: 09/26/22 08:04 Dose: Not Given Magnesium Sulfate (Magnesium Sulfate) 4 gm in 100 mls @ 25 mls/hr IV ONCE ONE Stop: 09/26/22 11:44 Last Admin: 09/26/22 08:01 Dose: 25 mls/hr Piperacillin Sod/Tazobactam (Sod 3.375 gm/ Dextrose) 50 mls @ 100 mls/hr IV Q6H [facility]; Protocol Last Infusion: 09/26/22 10:20 Dose: Infused Ibuprofen (Ibuprofen 600 Mg Tablet) 600 mg PO QIDP PRN; Protocol PRN Reason: Per Pain Protocol/Fever > 101 Insulin Human Lispro (Insulin Lispro 1 Unit/0.01 Ml Unit) 0 unit SQ [facility]; Protocol Last Admin: 09/26/22 08:15 Dose: 6 unit Ondansetron HCl (Ondansetron 4 Mg/2 Ml Vial) 4 mg IV Q6HP PRN PRN Reason: Nausea And Vomiting Budesonide- Formoterol [ Symbicort] 160-4.5 Mcg Inhaler 2 dose INH BID [facility] Last Admin: 09/26/22 08:39 Dose: Not Given Senna (Sennosides 1 Tablet) 2 tab PO HS [facility] Last Admin: 09/25/22 23:22 Dose: Not Given Sodium Chloride (0.9 % Sodium Chloride 10 Ml Syringe) 10 ml IV Q8 [facility] Last Admin: 09/26/22 08:01 Dose: Not Given A/P Assessment and plan (1) Hypocalcemia: Status: Acute (2) Hyperlipidemia: Status: Chronic (3) Type 2 diabetes mellitus without complications: Status: Chronic Qualifiers: Diabetes mellitus fci insulin use: without fci use Qualified Code(s): E11.9 - Type 2 diabetes mellitus without complications (4) CKD (chronic kidney disease) stage 2, GFR 60-89 ml/min: Status: Suspected (5) Morbid obesity: Status: Chronic Narrative A/P Narrative: The patient is on numerous medications and there is concerns for polypharmacy. Her diuretics including furosemide and Aldactone are likely leading to hypomagnesemia which in turn can lead to severe hypocalcemia due to vitamin D/PTH resistance. She also has underlying CKD. The patient's PTH, PTrH will be checked. Her vitamin D levels will also be checked. We will hold her home antihypertensives and diuretics. The patient will be hydrated with IV fluids, receive IV magnesium and IV calcium gluconate. Medication reconciliation will be performed. 09/26: We will continue IV magnesium 4 g and IV calcium gluconate as her ionized calcium and magnesium are still quite low. Magnesium was 1.1 and her ionized calcium was 0.77 this morning. We will give Zosyn for her abdominal wound infection. Holding her home antihypertensives. Time Spent With Patient Time: Total time spent is greater than 50% in coordination of care (as documented) at patient's floor/unit and/or counseling patient: Subsequent: Total time with patient: 25 - 34 minutes QUALITY VTE Deep Vein Thrombosis/Pulmonary Embolism Present on Admission: No
[2022-09-26] MEDS: SENNOSIDES 1 TABLET PO SCH (20:58)
[2022-09-27] MEDS: LACTATED RINGERS 1,000 ML IV SCH (01:15)
[2022-09-27] MEDS: PIPERACILLIN SODIUM/TAZOBACTAM 3.375 GM in DEXTROSE 5% IN WATER 50 ML IV SCH ×2 (05:35)
[2022-09-27] MEDS: 0.9 % SODIUM CHLORIDE 10 ML SYRINGE IV SCH (05:36)
[2022-09-27 07:46] LABS: Blood Urea Nitrogen 16 mg/dL (6-20); Carbon Dioxide 23 mmol/L (22-30); Chloride 101 mmol/L (96-108); Glomerular Filtration Rate 62; Glucose 230 mg/dL (70-105)
[2022-09-27] MEDS: INSULIN LISPRO 1 UNIT/0.01 ML UNIT SQ SCH (07:48)
--- NOTE | 2022-09-27 08:16 | EKG ---
[facility] Test Date: 2022-09-25 Pat Name: Rosmery Garcia Department: ED Room: Gender: Female Attendance Officer: SS : [id number] Requested By: Ji Mariano Order Number: [id number] Reading MD: Carlos Alex Measurements Intervals [place] Rate: 80 P: 44 [place]: 177 QRS: 67 QRSD: 103 T: 75 QT: 417 QTc: 481 Interpretive Statements Sinus rhythm Low voltage, precordial leads Electronically Signed On 09-27-2022 8:16:13 PDT by Carlos Alex /store/M0/[id number]
[2022-09-27] MEDS: ENOXAPARIN 40 MG/0.4 ML SYRINGE SQ SCH (08:26)
[2022-09-27] MEDS: Budesonide-Formoterol [Symbicort] 160-4.5 mcg Inhaler INH SCH (08:27)
[2022-09-27] MEDS: DOCUSATE SODIUM 100 MG CAPSULE PO SCH (08:27)
--- NOTE | 2022-09-27 08:55 | Discharge Summary ---
Discharge Provider Provider IMPORTANT FOLLOW-UP INFORMATION FOR PCP: 1. Med rec follow up with PCP and cardiology 2. Continue calcium and vitamin D supplementation Patient information: Note initiated : 09/27/22 at 8:53 am Service Date, if different from initiated Date: [] Patient: Rosmery Garcia 57 y/o F admitted on 09/25/22 for Dizzy-Altered Mental Status. Chief Complaint: Fatigue, weakness, paresthesia Date of admission: 09/25/22 19:07 Discharge date: 09/27/22 Primary care physician: Ann Chi PA-C Consults: 09/25/22 Consult to Physician [CONS] Stat Comment: Consulting Provider: Mayra Ritchie Reason For Exam: Physician to Consult COURSE Hospital Course Hospital course: History of present illness: Ms. Garcia is a 57 year old morbidly obese female with a complex past medical history significant for FILIPE, diabetes mellitus type 2, COPD, CAD, and CKD stage II who presents to the hospital with 3-day history of fatigue, malaise, and weakness. The patient states that she has been sleeping most of the day and at night. She lives with her daughter. The daughter was quite concerned and brought her in to the ER today for further evaluation. She also complains of paresthesia of her face and extremities. The patient states that she has been struggling with an abdominal wound infection and was also started on doxycycline recently. Her primary care physician recently started her on Farxiga. On arrival to the ER, she was hemodynamically stable and afebrile however she was found to have severe electrolyte derangements with an ionized calcium of 0.7 and a magnesium of 0.8. The hospitalist service was asked to admit the patient for further management and evaluation of her severe hypocalcemia and hypomagnesemia. A/P Narrative: The patient is on numerous medications and there is concerns for polypharmacy. Her diuretics including furosemide and Aldactone are likely leading to hypomagnesemia which in turn can lead to severe hypocalcemia due to vitamin D/PTH resistance. She also has underlying CKD. The patient's PTH, PTrH will be checked. Her vitamin D levels will also be checked. We will hold her home antihypertensives and diuretics. The patient will be hydrated with IV fluids, receive IV magnesium and IV calcium gluconate. Medication reconciliation will be performed. 09/26: We will continue IV magnesium 4 g and IV calcium gluconate as her ionized calcium and magnesium are still quite low. Magnesium was 1.1 and her ionized calcium was 0.77 this morning. We will give Zosyn for her abdominal wound infection. Holding her home antihypertensives. 09/27: The patient's ionized calcium has improved to 0.95 and her magnesium has improved to 1.7. She will be discharged today with calcium and vitamin D supplementation. Discharge plan was discussed with patient and she is in agreement. Discharge diagnosis: [place], severe hypocalcemia, hypomagnesemia, polypharmacy Time Spent with Patient Time attestation: Total time spent providing and/or coordinating discharge services: Time spent: Greater than 30 minutes EXAM Constitutional Vitals: Temp Pulse Resp BP Pulse Ox O2 Del Method O2 Flow Rate 97.3 F 86 16 166/97 91 Room Air 2 09/27/22 08:00 09/27/22 08:00 09/27/22 08:00 09/27/22 08:00 09/27/22 08:00 09/27/22 08:00 09/27/22 04:24 General appearance: average body habitus Head Head exam: Present atraumatic, normal inspection and normocephalic Eye Eye exam: Present EOMI, normal appearance and PERRL; Absent conjunctival injection ENT ENT exam: Present normal exam; Absent mucous membranes dry Neck Neck exam: Present full ROM; Absent lymphadenopathy Respiratory Respiratory exam: Present normal respiratory exam and CTAB; Absent decreased breath sounds, respiratory distress or wheezes Cardiovascular Cardiovascular exam: Present normal rate and rhythm and RRR; Absent JVD GI/Abdominal GI/Abdominal exam: Present normal bowel sounds and soft; Absent diminished bowel sounds, distended, guarding, mass, rebound or tenderness Neurological Exam Neurological exam: Present alert, CN II-XII intact and oriented X3 Psychiatric Psychiatric exam: Present normal affect and normal mood Skin Skin exam: Present intact and warm; Absent erythema, pallor, petechiae or rash Discharge Data Data Completed and Pending Labs on day of discharge: Labs from last 24 hours 09/27/22 09/27/22 06:48 06:48 Sodium 137 Potassium 4.3 Chloride 101 Carbon Dioxide 23 Anion Gap 13.0 BUN 16 Creatinine 1.0 GFR Calculation 62 Glucose 230 H Ionized Calcium Jane 0.95 L Magnesium 1.7 Preliminary micro results at discharge 09/25/22 15:46 Urine Culture - Preliminary Urine - Clean Void Mid-Stream Discharge Plan Patient/Caregiver Discharge Instructions Activity: increase activity as tolerated Instructions: Calcium/Vitamin D Supplement (By mouth), Hypocalcemia (DC) Prescriptions: New calcium carbonate-vitamin D3 [Calcium 500 + D] 500 mg-10 mcg (400 unit) tablet 1 tab PO QDAY Qty: 30 0RF Continued acetaminophen 325 mg capsule 650 mg PO Q4H PRN aspirin 81 mg tablet,delayed release (DR/EC) 81 mg PO QDAY atorvastatin 40 mg tablet 40 mg PO QDAY Janumet XR 50-1,000 mg tablet, ER multiphase 24 hr 2 tab PO QAM (DME) lancets [TRUEplus Lancets] 33 gauge misc See Rx Instructions .ROUTE TID Qty: 100 Rx Instructions: As directed carvedilol 25 mg tablet 25 mg PO BID (DME) True Metrix Glucose Test Strip Strip See Rx Instructions .ROUTE QID Qty: 10 Rx Instructions: As directed amitriptyline 100 mg tablet 100 mg PO QHS Qty: 30 0RF Metamucil (sugar) Powder 2 tsp PO QDAY PRN (Reason: Constipation) (DME) CPAP [id number] pressure bled with 2LPM O2 Qty: 1 0RF Rx Instructions: As directed, chart note states 2-4 L 02 bled in. varenicline [Chantix] 1 mg tablet 1 mg PO BID Qty: 56 1RF hydrocodone-acetaminophen 5-325 mg tablet 1 tab PO TIDP PRN (Reason: pain) Qty: 90 0RF insulin glargine [Lantus Solostar U-100 Insulin] 100 unit/mL (3 mL) insulin pen 20 unit subcut QDAY Qty: 15 1RF insulin lispro [Humalog KwikPen Insulin] 100 unit/mL insulin pen 5 unit subcut TID Qty: 15 1RF Rx Instructions: administer with each meal benazepril 10 mg tablet 10 mg PO DAILY Qty: 90 0RF CPAP Machine See Rx Instructions .ROUTE .COMPLEX Patient Comments: with O2 at night time 2-4L Rx Instructions: with O2 at night time 2-4L doxycycline hyclate 100 mg tablet 100 mg PO bid 7 Days Qty: 14 0RF budesonide-formoterol [Symbicort] 160-4.5 mcg/actuation HFA aerosol inhaler 2 puff inhalation BID Qty: 10.2 6RF albuterol sulfate 90 mcg/actuation HFA aerosol inhaler 2 puff INHALATION Q6H PRN (Reason: shortness of breath or wheezing) Qty: 18 2RF insulin degludec [Tresiba FlexTouch U-200] 200 unit/mL (3 mL) insulin pen 0RF (DME) blood-glucose meter Kit See Rx Instructions .Route Qty: 1 0RF Rx Instructions: As directed testing blood glucose up to 4 times daily (DME) lancets-blood glucose strips 30 gauge combo pack See Rx Instructions .Route Qty: 200 12RF Rx Instructions: As directed testing blood glucose up to 4 times daily (DME) NovoFine Plus 32 gauge x 1/6" needle See Rx Instructions .Route Qty: 100 3RF Rx Instructions: As directed with Tresiba once daily (DME) SharpSafety Container Misc See Rx Instructions .Route Qty: 1 12RF Rx Instructions: As directed for pen needles ondansetron 4 mg tablet,disintegrating 4 mg PO Q6H PRN (Reason: nausea and vomiting) Qty: 30 2RF Discontinued furosemide [Lasix] 40 mg tablet 40 mg PO BID spironolactone 25 mg tablet 25 mg PO DAILY 30 Days Qty: 30 3RF Farxiga 5 mg tablet 5 mg PO QAM Qty: 30 3RF Follow Up Plan Follow up with: Ann Chi PA-C [Primary Care Provider] - Patient Disposition: Home, Self-Care Prognosis: Fair I certify that the patient requires SNF services: No Overall status at discharge: patient is back to baseline Discharge Orders: Discharge Order (Routine); Ordered 09/27/22 Ordered By: Mayra BARRIOS VTE Deep Vein Thrombosis/Pulmonary Embolism Present on Admission: No
== END 2022-09-27 11:11 | disposition home or self-care (01) | DRG 641 ==
LOC: ED 13:11 → MEDSUR 19:07
PROVIDERS: ADMIT Student in an Organized Health Care Education/Training Program; ATTEND Student in an Organized Health Care Education/Training Program